=== PATIENT | male | born 1985 | race Caucasian/White ===

== ENCOUNTER → 2016-10-02 | Outpatient (REF) | payer BC, OTHER ==
[~2016-10-02] MED LIST: ALEV220C2 PO; LORTAB PO
[2016-10-05 00:08] LABS: ENDOMYSIAL ABY IgA Negative (Negative)
== END ==
LOC: M LAB REF 17:05
PROVIDERS: ATTEND Internal Medicine
DX: R19.7 Diarrhea, unspecified (principal)

== ENCOUNTER → 2016-11-17 | Outpatient (REF) | payer BC, OTHER | LOC: M LAB REF 11:49 | PROVIDERS: ATTEND Internal Medicine | DX: R19.7 Diarrhea, unspecified (principal) ==

== ENCOUNTER → 2017-02-13 | Outpatient (CLI) | payer OTHER ==
[2017-02-13 13:38] LABS: ALBUMIN 4.1 GM/DL (3.2-5.2); ALBUMIN/GLOBULIN RATIO 1.17 (1.00-1.93); ALKALINE PHOSPHATASE 55 U/L (45-117); ALT/SGPT 175 U/L (12-78); AST/SGOT 120 U/L (7-37); BILIRUBIN,DIRECT 0.2 MG/DL (0.0-0.2); BILIRUBIN,TOTAL 0.6 MG/DL (0.2-1.0); FERRITIN 788 NG/ML (26-388); PERCENT SATURATION 52.7 % (19.7-50.0); TOTAL IRON BINDING CAPACITY 220 UG/DL (250-450); TOTAL PROTEIN 7.6 GM/DL (6.4-8.2)
[2017-02-14 10:41] LABS: HEPATITIS B SURFACE ANTIBODY POSITIVE (POSITIVE)
[2017-02-17 13:58] LABS: ALBUMIN 4.64 GM/DL (3.29-5.55); GAMMA GLOBULIN % 13.4 % (11.1-18.8)
[2017-02-19 08:06] LABS: ALPHA 1 ANTITRYPSIN 162 mg/dL (90-200); TISSUE TRANSGLUTAMINASE IgG <2 U/mL (0-5)
== END ==
LOC: M LAB 11:42
PROVIDERS: ATTEND Internal Medicine Gastroenterology
DX: R94.5 Abnormal results of liver function studies (principal)

== ENCOUNTER → 2019-06-14 | Outpatient (REF) | payer BC | LOC: M LAB REF 16:55 | PROVIDERS: ATTEND Nurse Practitioner Family | DX: L20.89 Other atopic dermatitis (principal); L08.9 Local infection of the skin and subcutaneous tissue, unspecified ==

== ENCOUNTER → 2020-02-14 | Outpatient (REF) | payer BC ==
[2020-02-14 17:25] LABS: INFLUENZA A AMPLIFICATION NEGATIVE (NEGATIVE); INFLUENZA B AMPLIFICATION NEGATIVE (NEGATIVE)
== END ==
LOC: M LAB REF 16:19
PROVIDERS: ATTEND Physician Assistant Medical
DX: J11.1 Influenza due to unidentified influenza virus with other respiratory manifestations (principal)

== ENCOUNTER → 2020-03-14 | Outpatient (REF) | payer BC ==
[2020-03-16 19:06] LABS: LDL DIRECT 76 mg/dL (0-99)
== END ==
LOC: M LAB REF 16:00
PROVIDERS: ATTEND Physician Assistant Medical
DX: Z13.220 Encounter for screening for lipoid disorders (principal)

== ENCOUNTER → 2020-05-03 | Outpatient (CLI) | payer BC, OTHER | LOC: M LABSMTC 13:08 | PROVIDERS: ATTEND Anesthesiology | DX: Z01.812 Encounter for preprocedural laboratory examination (principal); Z20.822 Contact with and (suspected) exposure to COVID-19; Z11.59 Encounter for screening for other viral diseases ==

== ENCOUNTER 2020-05-08 11:04 | Day surgery (SDC) | payer OTHER ==
[~2020-05-08] VITALS: Ht 177.8 cm; Wt 74.4 kg
--- OUTSIDE RECORDS SUMMARY | 2020-05-08 11:09 | CCD ---
Continuity of Care Document (CCD) Created on: 03/20/2020 Jorge Bedolla JR External Reference #: [id number] : [id number] Sex: Male Author Author Jorge MCNAIR PA Organization Unknown Address [address] [facility] [address] [place] [address] Phone [phone] Care Team Providers Care Real Estate Portfolio Manager Name Role Phone ServageKaylee AUTM [phone] Dusitn Mcnair AUTM [phone] Problems Active Problems Provider Date Gastroesophageal reflux disease CHIARA Ward Onset: 1 Note: with mild esophagitis Social History Type Date Description Comments Sex Unknown ETOH Use 03/14/2020 consumes 3-4 beers per day CONSU MES 1-2 daily Tobacco Use Start: Unknown Patient is a current smoker, smo kes every day 1 PPD since the age of 18 Allergies, Adverse Reactions, Alerts Active Allergies Reaction Severity Comments Date Penicillin as a child 08/24/2013 Medications Active Medications SIG Qnty Indications Ordering Provide r Date Dupixent 300mg/2ML Soln Prefill Sy ringe inj every 3 weeks Jenny Grimaldo NP Unknown Immunizations Description No Information Available Vital Signs Date Vital Result Comment 03/14/2020 8:59am BP Systolic 114 mmHg BP Diastolic 94 mmHg Heart Rate 92 /min Height 71 inches 5'11" Weight 178.00 lb O2 % BldC Oximetry 97 % BMI (Body Mass Index) 24.8 kg/m2 09/15/2017 1:57pm BP Systolic 128 mmHg BP Diastolic 76 mmHg Heart Rate 86 /min Height 70.50 inches 5'10.50" Weight 170.12 lb BMI (Body Mass Index) 24.1 kg/m2 Results Test Acquired Date Facility Test Result H/L Range Note Complete Blood Count 03/14/2020 [facility] Macroeconomics Professor: [place] [address] [phone] WBC 6.0 x10*3/UL 4.1 - 10.9 RBC 4.21 x10*6/UL 4.20 - 6.30 Hemoglobin 13.7 g/dL 12.0 - 18.0 Hematocrit 39.9 % 37.0 - 51.0 MCV 94.8 fL 80.0 - 97.0 MCH 32.6 pg High 26.0 - 32.0 MCHC 34.3 g/dL 31.0 - 38.0 RDW 13.8 % High 11.6 - 13.7 PLT 332 x10*3/UL 140 - 440 MPV 8.9 FL 7.8 - 11.0 Lymph % 34.8 % 10.0 - 58.5 Mid % 7.3 % 1.7 - 9.3 Neut % 57.9 % 37.0 - 92.0 Lymph # 2.1 x10*3/UL 0.6 - 4.1 Mid # 0.4 x10*3/UL 0.1 - 0.6 Neut # 3.5 x10*3/UL 2.0 - 7.8 Comprehensive Chem Profile 03/14/2020 [facility] Macroeconomics Professor: [place] [address] [phone] Glucose 83 mg/dL 74 - 99 1 BUN 9 mg/dL 7 - 18 Creatinine 1.0 mg/dL 0.6 - 1.3 Sodium 138 mEq/L 136 - 145 Potassium 4.3 mEq/L 3.5 - 5.1 Chloride 99 mEq/L 98 - 107 Carbon Dioxide 28 mEq/L 21 - 32 Calcium 8.8 mg/dL 8.5 - 10.1 Alk. Phosphatase 80 mg/dL 46 - 116 Total Bilirubin 0.5 mg/dL 0.2 - 1.0 Ast (Sgot) 90 U/L High 15 - 37 Alt (SGPT) 53 U/L 12 - 78 Albumin 3.8 g/dL 3.4 - 5.0 Total Protein 7.2 g/dL 6.4 - 8.2 A/G Ratio 1.12 CALC 1.00 - 1.90 GFR >= 60 mL/min >60 GFR >= 60 mL/min >60 2 Lipid Profile 03/14/2020 [facility] Macroeconomics Professor: [place] [address] [phone] Cholesterol 203 mg/dL High 131 - 200 Triglycerides 428 mg/dL High 30 - 150 3 HDL Cholesterol 52 mg/dL 35 - 60 LDL (Calculated) Unable to calcul <SEE NOTE> CALC 50 - 159 4 LDL Direct 03/14/2020 [facility] nter [address] [place] [address] [phone] LDL Direct 76 mg/dL Normal 0-99 Comment LDL Direct TNP Normal . 5 1 100-125 mg/dL PRE-DIABET ES/FASTING >126 mg/dL DIABETES/FASTING 2 CHRONIC KIDNEY DISEASE STAGI NG PER NKF STAGE I & II GFR >= 60 NORMAL TO MILDLY DECREASED STAGE III GFR 30-59 MODERATELY DECREASED STAGE IV GFR 15-29 SEVERELY DECREASED STAGE V GFR <15 VERY LITTLE GFR LEFT ESRD GFR <15 ON TRENCHER DRIVER 3 NOTE: RESULT VERIFIED. 4 Unable to calculate 5 Performed at: RN - [facility] [address] [id number] Macroeconomics Professor: Kim Borrego MD, Phone: [phone] Procedures Description No Information Available Medical Devices Description No Information Available Encounters Description No Information Available Assessments Date Code Description Provider 03/14/2020 Z00.00 Encounter for genera l adult medical examination without abnormal findings OSCAR Negron JR 03/14/2020 F10.20 Alcohol dependence, uncomplicate d OSCAR Negron JR 03/14/2020 F17.210 Nicotine dependence, cigarettes, uncomplicated OSCAR Negron JR 03/14/2020 R19.7 Diarrhea, unspecified OSCAR Denson JR 03/14/2020 R10.84 Generalized abdominal pain Vincenzo OSCAR [place] JR 03/14/2020 R11.10 Vomiting, unspecified OSCAR Denson JR 03/14/2020 Z13.220 Encounter for screening for lipo id disorders OSCAR Negron JR 03/14/2020 Z71.6 Tobacco abuse counseling OSCAR Negron JR Plan of Treatment Future Appointment(s):* 09/19/2020 8:00 am - OSCAR Negron JR at [facility] 03/14/2020 - OSCAR Negron JR* Z00.00 Encounter for general adult medical examination without abnormal findings* Comments:* Labs are pending, routine screen not due, VELMA discussed as well as diet and exercise. We discussed heart healthy Mediterranean diet and avoiding fast and fried food with increased fruits and vegetables. Also discussed smoking cessation and reduced alcohol consumption. Exercise discussed at length and he will attempt to add this to his routine. will refer to GI for abdominal pains/N/V issues, may need scope and CT * F10.20 Alcohol dependence, uncomplicated* Comments:* Has cut back to 1-2 drinks a night usually beer. Will continue to try to keep cutting back * F17.210 Nicotine dependence, cigarettes, uncomplicated* Comments:* Still smoking 1 pack a day, trying to cut back more on his own * R19.7 Diarrhea, unspecified* Comments:* Along with N/V and abdominal pains intermittent * R10.84 Generalized abdominal pain* Comments:* Refer to GI for scope and consult * Referral:* Michael Coreas MD, Gastroenterology * R11.10 Vomiting, unspecified* Comments:* Refer to GI for scope and consult * Z13.220 Encounter for screening for lipoid disorders * Z71.6 Tobacco abuse counseling* Comments:* >5 minutes discussed on importance of cutting back Functional Status Description No Information Available Mental Status Description No Information Available Referrals Refer to Reason for Referral Status Appt Date Michael Coreas MD CONSULT FOR N/V/D AND ABDOMI NAL PAIN. POSSIBLE ENDOSCOPY Patient Notified 04/27/[address] [place], [place] [address] [phone]
--- OUTSIDE RECORDS SUMMARY | 2020-05-08 11:09 | CCD | Continuity of Care Document ---
Author Author Jorge COREAS M.D. Organization Unknown Address [address] [place] [address] Phone [phone] Care Team Providers Care Survey Associate Name Role Phone Dustin Mcnair Milagros C P.A. AUTM [phone] Problems Active Problems Provider Date Nausea and vomiting Michael Coreas M.D. Onset: 04/27/19 21 Social History Type Date Description Comments Sex Unknown ETOH Use Occasionally Tobacco Use Start: Unknown Patient is a current smoker, smo kes every day Recreational Drug Use Regularly uses Marijuana Allergies, Adverse Reactions, Alerts Active Allergies Reaction Severity Comments Date Penicillin V 04/27/2020 Medications Active Medications SIG Qnty Indications Ordering Provide r Date Sutab [id number] Tablets as directed 1box Michael Coreas M.D. 04/27/2020 History Medications No Active Medications Michael sosa M.D. 04/27/2020 - 04/27/2020 Immunizations Description No Information Available Vital Signs Date Vital Result Comment 04/27/2020 2:59pm Height 70 inches 5'10" Weight 173.00 lb BP Systolic 119 mmHg BP Diastolic 85 mmHg Heart Rate 93 /min BMI (Body Mass Index) 24.8 kg/m2 Weight 78.473 kg Body Temperature 97.9 F Results Description No Information Available Procedures Description No Information Available Medical Devices Description No Information Available Encounters Description No Information Available Assessments Date Code Description Provider 04/27/2020 K58.8 Irritable bowel syndrome Michael Croeas M.D. 04/27/2020 K21.9 Gastroesophageal reflux disease Michael Coreas M.D. Plan of Treatment Future Appointment(s):* 05/02/2020 6:30 am - [facility] at Main Office * 05/08/2020 1:00 pm - Michael Coreas M.D. at Main Office 04/27/2020 - Michael Coreas M.D.* K58.8 Irritable bowel syndrome* Comments: * 35 yo wm who presents for a colonoscopy/egd due to a h/o abdominal pain/gas/nausea/vomiting/ for 1 month. Pt has diarrhea. No c/o abdominal pain, weight loss, change in bowel habits, or rectal bleeding. No family h/o colon cancer. No h/o chest pain, or sob. Plan:1. Colonoscopy + egd2. Informed consent. * K21.9 Gastroesophageal reflux disease* Comments:* As above. Functional Status Description No Information Available Mental Status Description No Information Available Referrals Description No Information Available
--- OUTSIDE RECORDS SUMMARY | 2020-05-08 11:09 | CCD | Continuity of Care Document ---
Author Author Jorge MCNAIR PA Organization Unknown Address [address] [facility] [address] [place] [address] Phone [phone] Care Team Providers Care Quality Control Representative Name Role Phone ServageKaylee AUTM [phone] Dustin Mcnair AUTM [phone] Problems Active Problems Provider Date Gastroesophageal reflux [...] H/L Range Note Complete Blood Count 03/14/2020 [facility] Head Of Training And Development: [place] [address] [phone] WBC 6.0 x10*3/UL 4.1 - 10.9 RBC [...] 2.0 - 7.8 Comprehensive Chem Profile 03/14/2020 [facility] Head Of Training And Development: [place] [address] [phone] Glucose 83 mg/dL 74 - 99 1 [...] 60 mL/min >60 2 Lipid Profile 03/14/2020 [facility] Head Of Training And Development: [place] [address] [phone] Cholesterol 203 mg/dL High 131 - 200 Triglycerides 428 mg/dL High 30 - 150 3 HDL Cholesterol 52 mg/dL 35 - 60 LDL (Calculated) Unable to calcul <SEE NOTE> CALC 50 - 159 4 Laboratory test finding 03/14/2020 [facility] [address] [place] [address] [phone] LDL Direct <pending> 1 100-125 mg/dL PRE-DIABET ES/FASTING >126 mg/dL DIABETES/FASTING 2 CHRONIC KIDNEY DISEASE STAGI NG PER NKF STAGE I & II GFR >= 60 NORMAL TO MILDLY DECREASED STAGE III GFR 30-59 MODERATELY DECREASED STAGE IV GFR 15-29 SEVERELY DECREASED STAGE V GFR <15 VERY LITTLE GFR LEFT ESRD GFR <15 ON ECHOCARDIOGRAPHER 3 NOTE: RESULT VERIFIED. 4 Unable to calculate Procedures Description No Information Available Medical Devices [...] 8:00 am - OSCAR Negron JR at [facility] 09/15/2017 - Heriberto Feliciano MD* F10.20 Alcohol dependence, uncomplicated * F17.210 Nicotine dependence, cigarettes, uncomplicated* Comments:* Smoking cessation discussed. * Z71.6 Tobacco abuse counseling * All * New Medication:* No Active Medications - Functional Status Description No Information Available Mental Status Description No Information Available Referrals Refer to Reason for Referral Status Appt Date Michael Coreas MD CONSULT FOR N/V/D AND ABDOMI NAL PAIN. POSSIBLE ENDOSCOPY Created [address] [facility] [id number] [phone]
--- OUTSIDE RECORDS SUMMARY | 2020-05-08 11:09 | CCD | Continuity of Care Document ---
Author Author Jorge COREAS M.D. Organization Unknown Address [address] [place] [address] Phone [phone] Care Team Providers Care Box Office Clerk Name Role Phone Dustin Mcnair Milagros C P.A. AUTM [phone] Problems Active Problems Provider Date Nausea and [...] Qnty Indications Ordering Provide r Date Sutab [id number] Tablets as directed 1box Michael Coreas M.D. [...] Medical Devices Description No Information Available Encounters Type Date Location Provider Dx Diagnosis Office Visit 04/27/2020 2:30p Main Office Michael Coreas M.D. K 58.8 Other irritable bowel syndrome K21.9 Gastro-esophageal reflux dis ease without esophagitis Assessments Date Code Description Provider 04/27/2020 K58.8 Irritable bowel syndrome Michael Coreas M.D. 04/27/2020 K21.9 Gastroesophageal reflux disease Michael Coreas M.D. Plan of Treatment Future Appointment(s):* 05/02/2020 6:30 am - [place] at Main Office * 05/08/2020 1:00 pm [...]
--- OUTSIDE RECORDS SUMMARY | 2020-05-08 11:09 | CCD | Continuity of Care Document ---
Author Author Jorge MCNAIR PA Organization Unknown Address [address] [facility] [address] [place] [address] Phone [phone] Care Team Providers Care Firer Marine Name Role Phone ServageKaylee AUTM [phone] Dustin Mcnair AUTM [phone] Problems Active Problems Provider Date Gastroesophageal reflux [...] Range Note Complete Blood Count 03/14/2020 [facility] Clinical Rn Manager: [place] [address] [phone] WBC 6.0 x10*3/UL 4.1 - 10.9 RBC [...] 2.0 - 7.8 Comprehensive Chem Profile 03/14/2020 [facility] Clinical Rn Manager: [place] [address] [phone] Glucose 83 mg/dL 74 - 99 1 [...] 60 mL/min >60 2 Lipid Profile 03/14/2020 [facility] Clinical Rn Manager: [place] [address] [phone] Cholesterol 203 mg/dL High 131 - 200 Triglycerides 428 mg/dL High 30 - 150 3 HDL Cholesterol 52 mg/dL 35 - 60 LDL (Calculated) Unable to calcul <SEE NOTE> CALC 50 - 159 4 LDL Direct 03/14/2020 [facility] nter [address] [place] [address] [phone] LDL Direct 76 mg/dL Normal 0-99 Comment [...] LITTLE GFR LEFT ESRD GFR <15 ON FINE ARTS MODEL 3 NOTE: RESULT VERIFIED. 4 Unable to calculate 5 Performed at: RN - [facility] [address] [id number] Clinical Rn Manager: Kim Borrego MD, Phone: [phone] Procedures Description No Information Available Medical Devices Description No Information Available Encounters Type Date Location Provider Dx Diagnosis Office Visit 03/14/2020 9:00a [facility] OSCAR Hood JR Z00.00 Encntr for general adult med ical exam w/o abnormal findings R10.84 Generalized abdominal pain R19.7 Diarrhea, unspecified R11.10 Vomiting, unspecified F10.20 Alcohol dependence, uncompli cated F17.210 Nicotine dependence, cigaret ziggy, uncomplicated Z71.6 Tobacco abuse counseling Z13.220 Encounter for screening for lipoid disorders Z13.89 Encounter for screening for other disorder Assessments Date Code Description Provider 03/14/2020 Z00.00 Encounter for genera l adult medical examination without abnormal findings OSCAR Negron JR 03/14/2020 R10.84 Generalized abdominal pain OSCAR Santiago JR 03/14/2020 R19.7 Diarrhea, unspecified OSCAR Denson JR 03/14/2020 R11.10 Vomiting, unspecified OSCAR Denson JR 03/14/2020 F10.20 Alcohol dependence, uncomplicate d OSCAR Negron JR 03/14/2020 F17.210 Nicotine dependence, cigarettes, uncomplicated OSCAR Negron JR 03/14/2020 Z71.6 Tobacco abuse counseling OSCAR Negron JR 03/14/2020 Z13.220 Encounter for screening for lipo id disorders OSCAR Negron JR 03/14/2020 Z13.89 Encounter for screening for othe r disorder OSACR Negron JR Plan of Treatment Future Appointment(s):* 09/19/2020 8:00 am - OSCAR Negron JR at [facility] 03/14/2020 - OSCAR Negron JR* [...] issues, may need scope and CT * R10.84 Generalized abdominal pain* Comments:* Refer to GI for scope and consult * Referral:* Michael Coreas MD, Gastroenterology * R19.7 Diarrhea, unspecified* Comments:* Along with N/V and abdominal pains intermittent * R11.10 Vomiting, unspecified* Comments:* Refer to GI for scope and consult * F10.20 Alcohol dependence, uncomplicated* Comments:* Has cut back to 1-2 drinks a night usually beer. Will continue to try to keep cutting back * F17.210 Nicotine dependence, cigarettes, uncomplicated* Comments:* Still smoking 1 pack a day, trying to cut back more on his own * Z71.6 Tobacco abuse counseling* Comments:* >5 minutes discussed on importance of cutting back * Z13.220 Encounter for screening for lipoid disorders * Z13.89 Encounter for screening for other disorder Functional Status Description No Information Available Mental Status Description No Information Available Referrals Refer to Reason for Referral Status Appt Date Michael Coreas MD CONSULT FOR N/V/D AND ABDOMI NAL PAIN. POSSIBLE ENDOSCOPY Patient Notified 04/27/[address] [facility] [address] [phone]
--- OUTSIDE RECORDS SUMMARY | 2020-05-08 11:09 | CCD ---
Author Author [facility] Organization [facility] Address Unknown Phone Unavailable Care Team Providers Care Install And Repair Technician Name Role Phone Justo Coreas MD Unavailable Unavailable Justo Coreas MD Unavailable Unavailable Justo Coreas MD Unavailable Unavailable Justo Coreas MD Unavailable Unavailable Justo Coreas MD Unavailable Unavailable Justo Coreas MD Unavailable Unavailable Justo Coreas MD Unavailable Unavailable Justo Coreas MD Unavailable Unavailable Justo Coreas MD Unavailable Unavailable Justo Coreas MD Unavailable Unavailable Justo Coreas MD Unavailable Unavailable Justo Coreas MD Unavailable Unavailable Justo Coreas MD Unavailable Unavailable Justo Coreas MD Unavailable Unavailable Justo Coreas MD Unavailable Unavailable Justo Coreas MD Unavailable Unavailable Justo Coreas MD Unavailable Unavailable Justo Coreas MD Unavailable Unavailable Justo Coreas MD Unavailable Unavailable Justo Coreas MD Unavailable Unavailable Justo Coreas MD Unavailable Unavailable Justo Coreas MD Unavailable Unavailable Justo Coreas MD Unavailable Unavailable Justo Coreas MD Unavailable Unavailable Justo Coreas MD Unavailable Unavailable Justo Coreas MD Unavailable Unavailable Justo Coreas MD Unavailable Unavailable Justo Coreas MD Unavailable Unavailable Lyudmila, S Michael MD Unavailable Unavailable Lyudmila, S Michael MD Unavailable Unavailable Lyudmila, S Michael MD Unavailable Unavailable Lyudmila, S Michael MD Unavailable Unavailable Lyudmila, S Michael MD Unavailable Unavailable Lyudmila, S Michael MD Unavailable Unavailable Lyudmila, S Michael MD Unavailable Unavailable Lyudmila, S Michael MD Unavailable Unavailable Lyudmila, S Michael MD Unavailable Unavailable Lyudmila, S Michael MD Unavailable Unavailable Lyudmila, S Michael MD Unavailable Unavailable Lyudmila, S Michael MD Unavailable Unavailable Lyudmila, S Michael MD Unavailable Unavailable Lyudmila, S Michael MD Unavailable Unavailable Lyudmila, S Michael MD Unavailable Unavailable Lyudmila, S Michael MD Unavailable Unavailable Lyudmila, S Michael MD Unavailable Unavailable Lyudmila, S Michael MD Unavailable Unavailable Lyudmila, S Michael MD Unavailable Unavailable Lyudmila, S Michael MD Unavailable Unavailable Lyudmila, S Michael MD Unavailable Unavailable Lyudmila, S Michael MD Unavailable Unavailable PICKERAL JR, J JAYMIE PA-C Unavailable Unavailable PICKERAL JR, J JAYMIE PA-C Unavailable Unavailable PICKERAL JR, J JAYMIE PA-C Unavailable Unavailable PICKERAL JR, J JAYMIE PA-C Unavailable Unavailable PICKERAL JR, J JAYMIE PA-C Unavailable Unavailable PICKERAL JR, J JAYMIE PA-C Unavailable Unavailable PICKERAL JR, J JAYMIE PA-C Unavailable Unavailable PICKERAL JR, J JAYMIE PA-C Unavailable Unavailable PICKERAL JR, J JAYMIE PA-C Unavailable Unavailable PICKERAL JR, J JAYMIE PA-C Unavailable Unavailable PICKERAL JR, J JAYMIE PA-C Unavailable Unavailable PICKERAL JR, J JAYMIE PA-C Unavailable Unavailable PICKERAL JR, J JAYMIE PA-C Unavailable Unavailable PICKERAL JR, J JAYMIE PA-C Unavailable Unavailable PICKERAL JR, J JAYMIE PA-C Unavailable Unavailable PICKERAL JR, J JAYMIE PA-C Unavailable Unavailable PICKERAL JR, J JAYMIE PA-C Unavailable Unavailable PICKERAL JR, J JAYMIE PA-C Unavailable Unavailable PICKERAL JR, J JAYMIE PA-C Unavailable Unavailable PICKERAL JR, J JAYMIE PA-C Unavailable Unavailable PICKERAL JR, J JAYMIE PA-C Unavailable Unavailable Re-disclosure Warning The records that you are about to access may contain information from federally-assisted alcohol or drug abuse programs. If such information is present, then the following federally mandated warning applies: This information has been disclosed to you from records protected by federal confidentiality rules (42 CFR part 2). The federal rules prohibit you from making any further disclosure of this information unless further disclosure is expressly permitted by the written consent of the person to whom it pertains or as otherwise permitted by 42 CFR part 2. A general authorization for the release of medical or other information is NOT sufficient for this purpose. The Federal rules restrict any use of the information to criminally investigate or prosecute any alcohol or drug abuse patient.The records that you are about to access may contain highly sensitive health information, the redisclosure of which is protected by Article 27-F of the [facility] Public Health law. If you continue you may have access to information: Regarding HIV / AIDS; Provided by facilities licensed or operated by the [facility] Office of Mental Health; or Provided by the [facility] Office for People With Developmental Disabilities. If such information is present, then the following [facility] mandated warning applies: This information has been disclosed to you from confidential records which are protected by state law. State law prohibits you from making any further disclosure of this information without the specific written consent of the person to whom it pertains, or as otherwise permitted by law. Any unauthorized further disclosure in violation of state law may result in a fine or care home sentence or both. A general authorization for the release of medical or other information is NOT sufficient authorization for further disc losure. Encounters Encounter Providers Location Date Indications Data Source(s ) Outpatient Attender: Michael Coreas MD Main Office 04/27/2020 01:30:00 PM EST [facility] ([facility]) Outpatient Attender: JAYMIE Reynoldslogg Rito 1 05/15/2019 08:00:00 AM EST [facility] ([facility] ) Medications Medication Brand Name Start Date Product Form Dose Route Admi nistrative Instructions Pharmacy Instructions Status Indications Reaction Description Data Source(s) 1.479-0.188 gram 05/04/2020 12:00:00 AM EST tablet 24 USE DIRECTED USE DIRECTED SOLD: 05/04/2020 [facility] Sutab Sutab 04/27/2020 12:00:00 AM EST active [facility] ([facility]) No Active Medications 04/27/2020 12:00:00 AM EST completed [facility] ([facility]) Insurance Providers Payer name Policy type / Coverage type Policy ID Covered republican ID Covered republican's relationship to jones Policy Jones Plan Information [facility] [id number] SP [id number] BCBS [place] HMO [id number] SP [id number] [place] PPO 302/307 [id number] SP [id number] [employer] HE[employer] CARE [id number] SP [id number] MVP (HMO/PPO) HEALTH CARE [id number] 0 [id number] BS [place] Trad/MX Commercial [id number] Self [id number] MVP Healthcare Commercial [id number] Self [id number] [employer] HE[employer] CARE [id number] SP [id number] MVP HEALTH CARE O [id number] S [id number] BCBS [place] PPO 302/307 [id number] SP [id number] EXCELLUS BCBS B [id number] S [id number] EXCELLUS BCBS P [id number] S [id number] P UNAVAILABLE UNAVAILA BLE SELF PAY UNAVAILABLE SP UNAVAILA BLE BCBS [place] PPO 302/307 [id number] [id number] Problems, Conditions, and Diagnoses Code Display Name Description Problem Type Effective Dates Data Source(s) [id number] Nausea and vomiting Nausea and vomiting Problem 0 04/27/2020 12:00:00 AM EST [facility] ([facility]) Results ID Date Data Source [id number] 05/03/2020 01:20:00 PM EST [facility] Name Value Range Interpretation Code Description Data Yamile rce(s) Supporting Document(s) SARS coronavirus 2 RNA Not Detected [facility] This lab was ordered by [facility] and reported by [facility]. ID Date Data Source [id number] 04/08/2020 12:00:00 AM EST [facility] Name Value Range Interpretation Code Description Data Yamile rce(s) Supporting Document(s) SARS-CoV2 Rapid Antigen Positive [facility] This lab was ordered by [facility] and reported by [facility]. ID Date Data Source [id number] 03/14/2020 09:23:00 AM EST [facility] ([facility]) Name Value Range Interpretation Code Description Data Yamile rce(s) Supporting Document(s) Comment LDL Direct Laboratory test result [facility] ([facility]) Performed at: RN - [facility] [address] [id number] Caramel Candy Maker: Kim Borrego MD, Phone: [phone] LDL Direct 76 mg/dL 0-99 [facility] ([facility]) ID Date Data Source [id number] 03/14/2020 09:23:00 AM EST [facility] ([facility]) Name Value Range Interpretation Code Description Data Yamile rce(s) Supporting Document(s) Cholesterol [Mass/volume] in Serum or Plasma 203 mg/dL 131-200 [facility] ([facility]) Triglyceride [Mass/volume] in Serum or Plasma 428 mg/dL 30-150 [facility] ([facility]) NOTE: RESULT VERIFIED. Cholesterol in HDL [Mass/volume] in Serum or Plasma 52 mg/dL 35-60 [facility] ([facility]) Cholesterol in LDL [Mass/volume] in Serum or Plasma by calculation Laboratory test result 50-159 [facility] ([facility] ) Unable to calculate ID Date Data Source [id number] 03/14/2020 09:23:00 AM EST [facility] ([facility]) Name Value Range Interpretation Code Description Data Yamile rce(s) Supporting Document(s) Glucose [Mass/volume] in Serum or Plasma 83 mg/dL 74-99 [facility] ([facility]) 100-125 mg/dL PRE-DIABETES/FASTING >126 mg/dL DIABETES/FASTING Creatinine 1.0 mg/dL 0.6-1.3 [facility] ([facility]) Urea nitrogen [Mass/volume] in Serum or Plasma 9 mg/dL 7-18 [facility] ([facility]) Potassium [Moles/volume] in Serum or Plasma 4.3 meq/L 3.5-5.1 [facility] ([facility]) Carbon dioxide, total [Moles/volume] in Serum or Plasma 28 meq/L 21 -32 [facility] ([facility]) Sodium [Moles/volume] in Serum or Plasma 138 meq/L 136-145 [facility]) Chloride [Moles/volume] in Serum or Plasma 99 meq/L 98-107 [facility] ([facility]) Calcium [Mass/volume] in Serum or Plasma 8.8 mg/dL 8.5-10.1 [facility] ([facility]) Total Bilirubin 0.5 mg/dL 0.2-1.0 [facility] ([facility]) Alkaline phosphatase isoenzyme [Units/volume] in Serum or Pl asma 80 mg/dL 46-116 [facility] ([facility]) Aspartate aminotransferase [Enzymatic activity/volume] in Serum or Plasma 90 U/L 15-37 [facility] ([facility] ) Alanine aminotransferase [Enzymatic activity/volume] in Seru m or Plasma 53 U/L 12-78 [facility] ([facility]) Albumin [Mass/volume] in Serum or Plasma 3.8 g/dL 3.4-5.0 [facility] ([facility]) Glomerular filtration rate/1.73 sq M pre dicted among non-blacks [Volume Rate/Area] in Serum or Plasma by Creatinine-based formula (MDRD) Laboratory test result [facility] ([facility] ) A/G Ratio 1.12 CALC 1.00-1.90 [facility]) Proteinase 3 Ab [Units/volume] in Serum 7.2 g/dL 6.4-8.2 [facility] ([facility]) Glomerular filtration rate/1.73 sq M pre dicted among blacks [Volume Rate/Area] in Serum or Plasma by Creatinine-based formula (MDRD) Laboratory test result [facility] <content>CHRONIC KIDNEY DISEASE STAGING PER NKF</content>
<content></content>
<content>STAGE I & II GFR >= 60 NORMAL TO MILDLY DECREASED</content>
<content>STAGE III GFR 30-59 MODERATELY DECREASED</content>
<content>STAGE IV GFR 15-29 SEVERELY DECREASED</content>
<content>STAGE V GFR <15 VERY LITTLE GFR LEFT</content>
<content>ESRD GFR <15 ON VIDEO SOFTWARE ENGINEER</content>
<content></content> ID Date Data Source [id number] 03/14/2020 09:23:00 AM EST [facility] ([facility]) Name Value Range Interpretation Code Description Data Yamile rce(s) Supporting Document(s) Erythrocytes [#/volume] in Blood by Automated count 4.21 x10*6/UL 4.2 0-6.30 [facility] ([facility]) Leukocytes [#/volume] in Blood by Automated count 6.0 x10*3/UL 4.1-10 .9 [facility] ([facility]) Hemoglobin [Mass/volume] in Blood 13.7 g/dL 12.0-18.0 [facility] ([facility]) MCH 32.6 pg 26.0-32.0 [facility] Hematocrit [Volume Fraction] of Blood by Automated count 39.9 % 3 7.0-51.0 [facility] ([facility]) MCV 94.8 fL 80.0-97.0 [facility]) Erythrocyte distribution width [Ratio] by Automated count 13.8 % 11.6-13.7 [facility] ([facility]) Platelets [#/volume] in Blood by Automated count 332 x10*3/UL 140-440 [facility] ([facility]) MCHC 34.3 g/dL 31.0-38.0 [facility] Lymph % 34.8 % 10.0-58.5 [facility]) MPV 8.9 FL 7.8-11.0 [facility] Mid % 7.3 % 1.7-9.3 [facility]) Lymph # 2.1 x10*3/UL 0.6-4.1 [facility] ([facility]) Neut % 57.9 % 37.0-92.0 [facility] Mid # 0.4 x10*3/UL 0.1-0.6 [facility] ([facility]) Neut # 3.5 x10*3/UL 2.0-7.8 [facility] ([facility]) ID Date Data Source [id number] 03/14/2020 09:23:00 AM EST [facility] ([facility]) Name Value Range Interpretation Code Description Data Yamile rce(s) Supporting Document(s) Cholesterol in LDL [Mass/volume] in Serum or Plasma by Direct assay Laboratory test result [facility] ([facility] ) ID Date Data Source [id number] 02/14/2020 02:00:00 PM EST [facility] Name Value Range Interpretation Code Description Data Yamile rce(s) Supporting Document(s) SARS coronavirus 2 RNA [Presence] in Res piratory specimen by MIGEL with probe detection [facility] This lab was ordered by [facility] a nd reported by [facility]. Procedure Social History Code Duration Value Status Description Data Source(s ) ETOH Use 03/14/2020 12:00:00 AM EST consumes 3-4 beers per day completed consumes 3-4 beers per day [facility] ([facility]) Vital Signs ID Date Data Source UNK Name Value Range Interpretation Code Description Data Source(s) Body temperature 97.9 [degF] 97.9 [degF] [facility] ([facility]) Body weight 78.473 kg 78.473 kg [facility] ([facility]) Body mass index (BMI) [Ratio] 24.8 kg/m2 24.8 k g/m2 [facility] ([facility]) Heart rate 93 /min 93 /min [facility] ([facility]) Diastolic blood pressure 85 mm[Hg] 85 mm[Hg] [facility] ([facility]) Systolic blood pressure 119 mm[Hg] 119 mm[Hg] [facility] ([facility]) Body weight 173.00 [lb_av] 173.00 [lb_av] [facility] ([facility]) Body height 70 [in_i] 70 [in_i] [facility] ([facility]) 5'10" Body mass index (BMI) [Ratio] 24.8 kg/m2 24.8 k g/m2 [facility] ([facility]) Oxygen saturation in Arterial blood by Pulse oximetry 97 % 97 % [facility] ([facility]) Body weight 178.00 [lb_av] 178.00 [lb_av] [facility] ([facility]) Body height 71 [in_i] 71 [in_i] [facility] ([facility]) 5'11" Heart rate 92 /min 92 /min [facility] ([facility]) Diastolic blood pressure 94 mm[Hg] 94 mm[Hg] [facility] ([facility]) Systolic blood pressure 114 mm[Hg] 114 mm[Hg] [facility] ([facility])
--- OUTSIDE RECORDS SUMMARY | 2020-05-08 11:09 | CCD | Continuity of Care Document ---
Author Author Jorge MUÑOZ PA Organization Unknown Address [address] [facility] [address] [place] [address] Phone [phone] Care Team Providers Care Maternity Nurse Name Role Phone YazageKaylee Raul ANP AUTM [phone] [place] CAREER BASED INTERVENTION COORDINATOR AUTM [phone] Problems Active Problems Provider Date Gastroesophageal reflux [...] BMI (Body Mass Index) 24.1 kg/m2 Results Description No Information Available Procedures Description [...] R19.7 Diarrhea, unspecified OSCAR Denson JR 03/14/2020 Z13.220 Encounter for screening for lipo id disorders OSCAR eNgron JR 03/14/2020 Z71.6 Tobacco abuse counseling OSCAR Negron JR Plan of Treatment No Information Available Functional Status Description No Information Available Mental Status Description No Information Available Referrals Description No Information Available
[2020-05-08] MEDS ORDERED: propofoL 500 MG/50 ML VIAL As Ordered ONE (11:39)
[2020-05-08] MEDS ORDERED: fentaNYL 100 MCG/2 ML INJECTION (J3010) As Ordered ONE (11:40)
[2020-05-08] MEDS ORDERED: LIDOCAINE 2% 100MG/5ML SDV (FOR ANES.) As Ordered ONE (11:59)
[2020-05-08] MEDS ORDERED: NS 1,000 ML IV ONE (12:00)
--- NOTE | 2020-05-08 12:19 | ROOR ---
Patient Name: Jorge Bedolla Procedure Date: 05/08/2020 12:06 PM Date of : 1985 Age: 35 [facility] Gender: Male Note Status: Finalized Procedure: Upper Endoscopy + Biopsies Indications: Epigastric abdominal pain, Heartburn, Nausea with vomiting Providers: Michael Coreas MD Referring MD: Mercy Roberts Requesting Provider: Medicines: Monitored Anesthesia Care Complications: No immediate complications. Procedure: Pre-Anesthesia Assessment: - The heart rate, respiratory rate, oxygen saturations, blood pressure, adequacy of pulmonary ventilation, and response to care were monitored throughout the procedure. The Endoscope was introduced through the mouth, and advanced to the second part of duodenum. The upper GI endoscopy was accomplished without difficulty. The patient tolerated the procedure well. Findings: The Z-line was regular and was found 40 cm from the incisors. Multiple biopsies were obtained with cold forceps for evaluation to rule out Barksdale's Esophagus randomly at the gastroesophageal junction. No other significant abnormalities were identified in a careful examination of the stomach. Biopsies were taken with a cold forceps in the gastric antrum for Helicobacter pylori testing. The exam of the duodenum was otherwise normal. Impression: - Z-line regular, 40 cm from the incisors. - Multiple biopsies were obtained at the gastroesophageal junction. - Biopsies were taken with a cold forceps for Helicobacter pylori testing. - The examination was otherwise normal. Recommendation: - Patient has a contact number available for emergencies. The signs and symptoms of potential delayed complications were discussed with the patient. Return to normal activities tomorrow. Written discharge instructions were provided to the patient. - High fiber diet. - Discharge patient to home. - Continue present medications. - Await pathology results. - Telephone GI clinic for pathology results in 1 week. - Return to referring physician. - The findings and recommendations were discussed with the patient. Procedure Code(s): --- Professional --- 31014, Esophagogastroduodenoscopy, flexible, transoral; with biopsy, single or multiple Diagnosis Code(s): --- Professional --- R10.13, Epigastric pain R12, Heartburn R11.2, Nausea with vomiting, unspecified CPT copyright 2019 [employer]. All rights reserved. The codes documented in this report are preliminary and upon health information coder review may be revised to meet current compliance requirements. Michael Coreas MD Michael Coreas MD 05/08/2020 12:18:42 PM Electronically signed by Michael Coreas MD Number of Addenda: 0 Note Initiated On: 05/08/2020 12:06 PM Estimated Blood Loss: Estimated blood loss: none.
--- NOTE | 2020-05-08 12:31 | ROOR ---
Patient Name: Jorge Bedolla Procedure Date: 05/08/2020 12:07 PM Date of : 1985 Age: 35 Room: [facility] Gender: Male Note Status: Finalized Procedure: Total Colonoscopy to Cecum Indications: Lower abdominal pain, Change in bowel habits Providers: Michael Coreas MD Referring MD: Mercy Roberts Requesting Provider: Medicines: Monitored Anesthesia Care Complications: No immediate complications. Procedure: Pre-Anesthesia Assessment: - The heart rate, respiratory rate, oxygen saturations, blood pressure, adequacy of pulmonary ventilation, and response to care were monitored throughout the procedure. The Colonoscope was introduced through the anus and advanced to the cecum, identified by appendiceal orifice and ileocecal valve. The colonoscopy was performed without difficulty. The patient tolerated the procedure well. The quality of the bowel preparation was good. Findings: The perianal and digital rectal examinations were normal. No other significant abnormalities were identified in a careful examination of the remainder of the colon. The exam was otherwise without abnormality on direct and retroflexion views. Impression: - The examination was otherwise normal on direct and retroflexion views. - No specimens collected. - The exam was otherwise normal to the cecum. Recommendation: - Patient has a contact number available for emergencies. The signs and symptoms of potential delayed complications were discussed with the patient. Return to normal activities tomorrow. Written discharge instructions were provided to the patient. - High fiber diet. - Discharge patient to home. - Continue present medications. - Repeat colonoscopy at age 52 for screening purposes. - Return to referring physician. - The findings and recommendations were discussed with the patient. Procedure Code(s): --- Professional --- 90890, Colonoscopy, flexible; diagnostic, including collection of specimen(s) by brushing or washing, when performed (separate procedure) Diagnosis Code(s): --- Professional --- R10.30, Lower abdominal pain, unspecified R19.4, Change in bowel habit CPT copyright 2019 [employer]. All rights reserved. The codes documented in this report are preliminary and upon waxer tender review may be revised to meet current compliance requirements. Michael Coreas MD Michael Coreas MD 05/08/2020 12:30:59 PM Electronically signed by Michael Coreas MD Number of Addenda: 0 Note Initiated On: 05/08/2020 12:07 PM Estimated Blood Loss: Estimated blood loss: none.
[2020-05-08 12:55] VITALS: BP 133/95
== END 2020-05-08 13:01 | disposition home or self-care (01) ==
LOC: M OPP 11:04
PROVIDERS: ATTEND Internal Medicine Gastroenterology
DX: R10.30 Lower abdominal pain, unspecified (principal); R19.4 Change in bowel habit; R10.13 Epigastric pain; R11.2 Nausea with vomiting, unspecified; D13.1 Benign neoplasm of stomach; K58.9 Irritable bowel syndrome, unspecified; K21.9 Gastro-esophageal reflux disease without esophagitis; F17.200 Nicotine dependence, unspecified, uncomplicated; Z88.0 Allergy status to penicillin
CPT/HCPCS: 43239; 45378; 88305; J3010

== ENCOUNTER 2020-09-19 17:18 | Inpatient (IN) | payer MEDICAID, OTHER ==
[~2020-09-19] VITALS: Ht 180.3 cm; Wt 84.1 kg
[2020-09-19] MEDS ORDERED: OMEP-221 PO (17:27)
[2020-09-19] MEDS ORDERED: ALPR0.5T3 PO (17:27)
[2020-09-19] MEDS ORDERED: BUPR150T12 PO (17:27)
[2020-09-19] MEDS ORDERED: LORazepam 2 MG TAB PO STA (17:39)
[2020-09-19 17:56] LABS: HEMATOCRIT 38.6 % (42.0-52.0); MEAN CORPUSCULAR HEMOGLOBIN 33.7 pg (27.0-33.0); MEAN CORPUSCULAR HGB CONC 33.7 g/dl (32.0-36.5); PLATELET COUNT, AUTOMATED 188 10^3/uL (150-450); RED BLOOD COUNT 3.86 10^6/uL (4.30-6.10); WHITE BLOOD COUNT 6.6 10^3/uL (4.0-10.0)
[2020-09-19 18:13] LABS: AMPHETAMINES LEVEL URINE NEGATIVE (NEGATIVE); BARBITURATES URINE NEGATIVE (NEGATIVE); BENZODIAZEPINES URINE NEGATIVE (NEGATIVE); CANNABINOIDS URINE POSITIVE (NEGATIVE); COCAINE METABOLITE URINE NEGATIVE (NEGATIVE); METHADONE URINE NEGATIVE (NEGATIVE); OPIATES URINE NEGATIVE (NEGATIVE); PHENCYCLIDINE URINE NEGATIVE (NEGATIVE)
[2020-09-19 18:28] LABS: ACETAMINOPHEN LEVEL < 2.0 UG/ML (10.0-30.0); ALBUMIN 3.7 GM/DL (3.2-5.2); ALT/SGPT 83 U/L (12-78); BILIRUBIN,DIRECT 0.1 MG/DL (0.0-0.2); BILIRUBIN,TOTAL 0.3 MG/DL (0.2-1.0); BLOOD UREA NITROGEN 5 MG/DL (7-18); CALCIUM LEVEL 8.8 MG/DL (8.5-10.1); CARBON DIOXIDE LEVEL 29 MEQ/L (21-32); CHLORIDE LEVEL 103 MEQ/L (98-107); CREATININE FOR GFR 0.88 MG/DL (0.70-1.30); ETHYL ALCOHOL (ETHANOL) 0.392 % (0.000-0.010); GLOMERULAR FILTRATION RATE > 60.0 (>60); GLUCOSE, FASTING 88 MG/DL (70-100); SALICYLATE LEVEL < 1.7 MG/DL (5.0-30.0); SODIUM LEVEL 138 MEQ/L (136-145); THYROID STIMULATING HORMONE 0.571 uIU/ML (0.358-3.740); TOTAL PROTEIN 7.5 GM/DL (6.4-8.2)
[2020-09-19] MEDS ORDERED: LORazepam 2 MG/ML VIAL IM ONE (20:10)
[2020-09-19] MEDS ORDERED: diphenhydrAMINE 50MG/ML VIAL (J1200) IM ONE (20:10)
[2020-09-19] MEDS ORDERED: HALOPERIDOL 5MG/ML VIAL (J1630 PER 1) IM ONE (20:10)
[2020-09-20] MEDS ORDERED: LORazepam 2 MG TAB PO PRN ×2 (04:55→14:25)
[2020-09-20] MEDS ORDERED: FOLIC ACID 1 MG TAB PO SCH (09:00)
[2020-09-20] MEDS ORDERED: THIAMINE 100 MG TAB PO SCH (09:00)
[2020-09-20] MEDS ORDERED: MULTIVITAMINS/MINERALS THERAP 1 TAB PO SCH (09:00)
[2020-09-20 14:23] LABS: RSV AMPLIFICATION NEGATIVE (NEGATIVE)
[2020-09-20] MEDS ORDERED: ACETAMINOPHEN TAB 650MG DOSE (2X325MG) PO PRN (14:25)
[2020-09-20] MEDS ORDERED: OLANZapine ORAL DISINTEGRATING TAB 5MG PO PRN (14:25)
[2020-09-20] MEDS ORDERED: MOM 30ML SUSPENSION UDC PO PRN (14:25)
[2020-09-20] MEDS ORDERED: MAALOX 30 ML SUSP *UDC PO PRN (14:25)
[2020-09-20] MEDS ORDERED: ALPRAZolam 0.5 MG TAB PO PRN (15:00)
[2020-09-20 15:53] VITALS: BP 164/103
[2020-09-20] MEDS: THIAMINE 100 MG TAB PO SCH (16:47)
[2020-09-20] MEDS ORDERED: NICOTINE 21MG/24HR 1 EA TRANSDERMAL TD ONE (17:45)
[2020-09-20] MEDS: OMEPRAZOLE 20 MG CAP PO SCH (21:03)
[2020-09-20] MEDS: traZODone 50 MG TAB PO PRN (21:04)
[2020-09-20] MEDS: buPROPion **XL** TABLET 150MG (WELLBUTRIN XL) PO SCH (21:04)
[2020-09-21 06:18] VITALS: BP 160/101
[2020-09-21 08:00] VITALS: BP 123/100
[2020-09-21] MEDS: FOLIC ACID 1 MG TAB PO SCH (09:06)
[2020-09-21] MEDS: MULTIVITAMINS/MINERALS THERAP 1 TAB PO SCH (09:06)
[2020-09-21] MEDS: THIAMINE 100 MG TAB PO SCH ×2 (09:06→20:23)
[2020-09-21] MEDS: NICOTINE 21MG/24HR 1 EA TRANSDERMAL TD SCH (09:07)
--- NOTE | 2020-09-21 11:11 | MHHPEPDOC ---
General Date Of Admission: Sep 20, 2020 Legal Status: 9.39 Chief Complaint ". I think I lost my temper been drinking quite heavily for the past few weeks. History of Present Illness HISTORY OF THE PRESENT ILLNESS: Patient is a 35 -year-old , male, who [has a long history of polysubstance abuse amphetamine and opiate in the past but recently heavy drinking. Patient has no previous psychiatric treatment but has been receiving antidepressant medicine from his primary care physician. He admits that he has been depressed at times but also gets very irritable and angry especially with his drinking. He was given Lexapro initially but did not get much help and was started on Wellbutrin in the past few weeks but he has not been consistently taking it. Patient was brought to emergency room per mental health warrant] initiated by his primary care doctor after his family reported that he was getting very paranoid acting strange and was making threats to his father and his girlfriend. Patient's father has been concerned about his mood and his drinking and recently removed several guns from his place and when he found out about this he became very angry agitated and made the threats verbally to his girlfriend and his father. At the emergency room he was found to have high level of alcohol but no other drugs in his tox screen. Patient was started on Ativan with [facility] and he slept and reports he is feeling a little bit better. He is denying any hallucinations denies any paranoia denies any history of jade and has no history of psychosis. He has been drinking heavily up to a case of beer a day for the past several weeks he denies having any history of severe wi thdrawal such as D.T. he understands that he has problem with his drinking and his temperament and irritability and is willing to cooperate with the treatment but denies any recent use of any opiate or amphetamine. Psychiatric Review of Systems Depression (2 or more weeks): depressed mood, anhedonia, psychomotor changes, other (Reports serious irritability and temper management) Jade (4 or more days of): irritable/elevated mood Psychosis: denies PTSD: denies Anxiety: situational anxiety Past Psychiatric History Previous Psychiatric Diagnosis: . Depression was receiving antidepressant from his primary care physician Previous Psychiatric Admissions: . No inpatient treatment Suicide Attempts: . No history of suicidal attempt no history of a homicidal or assaultive behavior Psychiatric Follow-up: . Not in any outpatient treatment Psychiatric medications: . Was on Lexapro and Wellbutrin Past Medical History Medical Problems Denies any major medical issues Head Injury: No Seizures: No Hospitalizations: No Surgeries: No Family Medical/Psychiatric HX Medical Problems Noncontributory Psychiatric Disorders: No (Her parents are alive and they do not have any mental health issues and no addictions issues 1 sister with a no psychiatric history) Addiction: No Suicide Attemps/Completions: No Addiction History alcohol, amphetamines, opioids Social History Childhood: . Born in [place] unremarkable childhood Abuse/Trauma:. Denies any abuse issues Current Living Situation: . Lives with his girlfriend of 6 years and has 3 children Education: . High school education Employment: . Worked in construction currently unemployed Social Support: . Parent and his girlfriend Legal: . DWI in teenage years no history of assault no felony conviction no current legal issues Marital: . Lives with his girlfriend of 6 years Mental Status Examination General Appearance: appears stated age, hospital scubs/clothing Build: average Demeanor: average, guarded Eye Contact: average Activity: average, anxious Behavior: cooperative Speech: clear, slow, low in volume Mood: depressed, anxious Mood Moderately depressed and anxious but he denies any history of severe depression with any major clinical or depressive symptoms and has no history of the manic Thought Process: logical/linear Thought Content (Delusions): none reported, denies SI, HI, AVH Thought Content (Other): none reported Thought Content (Aggressive): none reported Perception (Hallucinations): none reported Perception (Other): none reported Cognition (Impairment of): none reported Cognition(Intelligence Est.): average Oriented: Awake, Alert, Oriented times three Insight: fair Judgment: Fair Psychosis: Denies Diagnoses Depressive disorder NOS alcohol dependence history of other substances abuse in remission A-FIB/CHADSVASC A-FIB History Current/History of A-Fib/PAF?: No Current PO Anticoag Therapy: No Age/Risk Factor Scoring CHADSVASC: CHADSVASC Response (Comments) Value Gender Risk Factor Male 0 Hx of CHF No 0 Hx of HTN No 0 Hx of Stroke/TIA/or VTE No 0 Hx of Diabetes No 0 Hx of Vascular Disease No 0 Total 0 Treatment Treatment ordered: NONE Assessment Patient appears moderately anxious and in early stage of alcohol withdrawal but he does not have history of DT and no seizure history. He does not appear paranoid and does not have any psychotic symptoms and he is strongly denying any suicidal or homicidal ideas. He needs close supportive therapy with [facility] and I will start Ativan 2 mg 3 times daily p.o. and continue with supportive therapy Initial Treatment Plan 1. Patient was admitted on a 9.39 status. 2. Complete history was obtained. 3. With patients permission, family will be contacted and database will be expanded. 4. Patients medication regimen will be reviewed and changed accordingly. 5. Patient will be provided with protected environment. 6. Patient will be treated with individual, group, and milieu therapies. 7. Patient will receive supportive psych-education. 8. Discharge planning will commence immediately. 9. Outpatient follow-up treatment will be strongly recommended. 10. The initial treatment plan will focus initially on: * Depression. * Risk for suicide. ESTIMATED LENGTH OF STAY: 3-5 DAYS. TIME SPENT COUNSELING AND COORDINATING INITIAL CARE: Minutes. Tobacco Cessation Screen If Patient is a Smoker Occasional smoker but does not feel he needs nicotine replacement therapy N/A-No Antipsychotics Vital Signs Vital Signs Date Time Temp Pulse Resp B/P (MAP) Pulse Ox O2 Delivery O2 Flow Rate FiO2 09/21/20 08:28 Room Air 09/21/20 08:00 93 123/100 09/21/20 06:18 98.2 20 100 Laboratory Data 24H Labs Laboratory Tests 2 09/20/20 12:57: Coronavirus (COVID-19)(PCR) NEGATIVE, Influenza Type A (RT-PCR) NEGATIVE, Influenza Type B (RT-PCR) NEGATIVE, Respiratory Syncytial Virus (PCR) NEGATIVE Medications Scheduled Bupropion Hcl (Bupropion Xl) 150 Mg Tab.er.24h, 150 MG PO QHS, (Reported) Omeprazole (Omeprazole) 40 Mg Capsule.dr, 40 MG PO QHS, (Reported) Scheduled PRN Alprazolam (Alprazolam) 0.5 Mg Tablet, 0.5 MG PO TID PRN for ANXIETY, (Reported) Allergies Coded Allergies: Unclassified (Verified Allergy, Intermediate, ARTIFICIAL FLAVORING=RASH, 09/20/20) Penicillins (Verified Allergy, Unknown, rash, 05/04/20) SEASONAL ALLERGIES (Verified Allergy, Unknown, 07/07/13) VERONICA BRADEN M.D. Sep 21, 2020 11:10
--- NOTE | 2020-09-21 12:41 | HPEPDOC ---
[facility] Medical History & Physical Date of Admission Sep 20, 2020 Date of Service: Sep 21, 2020 History and Physical CHIEF COMPLAINT: Routine medical exam HISTORY OF PRESENT ILLNESS: 35-year-old male with history of polysubstance abuse with opiates and amphetamines. 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 Another into the prostate followed at the urology services in [place], Traumatic pneumothorax after a fall with admission to the hospital in 1999 1399, thoracic surgeon, Dr. Dustin Gómez with rib fracture in 1 flail segment. At that time, depression, eczema, presents to [facility] with depression, admitted to the inpatient mental health unit without any acute medical complaints today. Patient denies any fever, weight gain, weight loss, changes in appetite, changes in sleep habits, diarrhea, constipation, dysuria, urgency, frequency, flank pain, chills, nausea, vomiting, diarrhea, abdominal pain, hematochezia, hematemesis, coffee-ground emesis, bright blood per rectum, chest pain, pressure, tightness, shortness of breath, rhinorrhea, sore throat, changes in vision, ear discharge, tinnitus no other complaints. Hospitalist was asked to do a routine medical examination. PAST MEDICAL /SURGICAL HISTORY: history of polysubstance abuse with opiates and amphetamines. 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 Another into the prostate followed at the urology services in [place], Traumatic pneumothorax after a fall with admission to the hospital in 1999 1399, thoracic surgeon, Dr. 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 Patient has history of polysubstance abuse with methamphetamine and opiates. Heavy alcohol abuse and one pack-a-day smoker since his teenage years. Full code FAMILY HISTORY: Mother with cancer. Father with coronary artery disease ALLERGIES: Please see below. REVIEW OF SYSTEMS: 10 point review of systems negative aside from positive findings in HPI HOME MEDICATIONS: Please see below. PHYSICAL EXAMINATION: VITAL SIGNS: See below GENERAL APPEARANCE: Disheveled, no distress HEENT: No JVD, thyromegaly. Moist mucous membranes CARDIOVASCULAR: S1, S2, sinus rhythm LUNGS: Clear to auscultation. No adventitious breath sounds. Air entry is equal bilaterally ABDOMEN: Positive bowel sounds, soft, nontender, nondistended EXTREMITIES: No cyanosis, clubbing or pitting edema LABORATORY DATA: See below. MICROBIOLOGY: Please see below. ASSESSMENT: 35-year-old male with history of polysubstance abuse with opiates and amphetamines. 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 Another into the prostate followed at the urology services in [place], Traumatic pneumothorax after a fall with admission to the hospital in 1999 1400, thoracic surgeon, Dr. Dustin Gómez with rib fracture in 1 flail segment. At that time, depression, eczema, presents to [facility] with depression, admitted to the inpatient mental health unit without any acute medical complaints today. Patient denies any fever, weight gain, weight loss, changes in appetite, changes in sleep habits, diarrhea, constipation, dysuria, urgency, frequency, flank pain, chills, nausea, vomiting, diarrhea, abdominal pain, hematochezia, hematemesis, coffee-ground emesis, bright blood per rectum, chest pain, pressure, tightness, shortness of breath, rhinorrhea, sore throat, changes in vision, ear discharge, tinnitus no other complaints. Hospitalist was asked to do a routine medical examination. Depression -managed by primary team psychiatrist polysubstance abuse with opiates and amphetamines-outpatient drug rehabilitation program Situational anxiety disorder-managed by primary team psychiatrist double ureters going into the bladder. Another into the prostate . Outpatient follow-up with [facility] urology History of tension pneumothorax with 1 flail segment, resolved. Hospitals. We'll sign off. Please call [place] office at [phone] for any new acute medical issues Vital Signs Vital Signs Date Time Temp Pulse Resp B/P (MAP) Pulse Ox O2 Delivery O2 Flow Rate FiO2 09/21/20 08:28 Room Air 09/21/20 08:00 93 123/100 09/21/20 06:18 98.2 20 100 Laboratory Data Labs 24H Laboratory Tests 2 09/20/20 12:57: Coronavirus (COVID-19)(PCR) NEGATIVE, Influenza Type A (RT-PCR) NEGATIVE, Influenza Type B (RT-PCR) NEGATIVE, Respiratory Syncytial Virus (PCR) NEGATIVE 09/21/20 11:40: Home Medications Scheduled Bupropion Hcl (Bupropion Xl) 150 Mg Tab.er.24h, 150 MG PO QHS Omeprazole (Omeprazole) 40 Mg Capsule.dr, 40 MG PO QHS Scheduled PRN Alprazolam (Alprazolam) 0.5 Mg Tablet, 0.5 MG PO TID PRN for ANXIETY Allergies Coded Allergies: Unclassified (Verified Allergy, Intermediate, ARTIFICIAL FLAVORING=RASH, 09/20/20) Penicillins (Verified Allergy, Unknown, rash, 05/04/20) SEASONAL ALLERGIES (Verified Allergy, Unknown, 07/07/13) A-FIB/CHADSVASC A-FIB History Current/History of A-Fib/PAF?: No Current PO Anticoag Therapy: No Age/Risk Factor Scoring CHADSVASC: CHADSVASC Response (Comments) Value Age Risk Factor Age < 65 years old 0 Gender Risk Factor Male 0 Hx of CHF No 0 Hx of HTN No 0 Hx of Stroke/TIA/or VTE No 0 Hx of Diabetes No 0 Hx of Vascular Disease No 0 Total 0 Treatment Treatment ordered: NONE RANDY BULL MD Sep 21, 2020 12:41
[2020-09-21] MEDS: LORazepam 2 MG TAB PO SCH ×2 (15:01→20:23)
[2020-09-21 17:02] VITALS: BP 144/86
[2020-09-21] MEDS: buPROPion **XL** TABLET 150MG (WELLBUTRIN XL) PO SCH (20:23)
[2020-09-21] MEDS: traZODone 50 MG TAB PO PRN (20:23)
[2020-09-21] MEDS: OMEPRAZOLE 20 MG CAP PO SCH (20:23)
[2020-09-21 22:00] VITALS: BP 146/88
[2020-09-22] MEDS ORDERED: NICO21PAT TD (07:42)
[2020-09-22 07:51] VITALS: BP 142/91
--- NOTE | 2020-09-22 08:39 | MHDSPDOC ---
[facility] Discharge Summary Discharge Summary DATE OF ADMISSION: Sep 20, 2020 at 14:24 DATE OF DISCHARGE: September 22, 2020 DISCHARGE DIAGNOSES: 1.. Depressive disorder NOS 2.. Alcohol dependence REASON FOR ADMISSION: 35-year-old man with a history of polysubstance abuse and recent treatment for depression. He was brought in on mental health warrant after he reportedly made threatening statement to his father and also vague suicidal threats. Patient stated that he has been in full sobriety from his drug use but has been drinking heavily in the past several weeks. He admits that he was feeling irritable and frustrated and made some threatening remarks while he was acutely intoxicated but denies any ongoing paranoia and denies any intent to harm anybody and is not showing any gross manic or psychotic symptoms. CONSULTANTS INVOLVED: TREATMENT AND PROGRESS ON THE UNIT : Patient was seen for supportive therapy he was put on alcohol withdrawal protocol and he was given Ativan 2 mg 3 times a day. He showed rapid improvement and his vital signs are stable and he slept fairly good and denies any hallucination paranoia and denies any thoughts of harming anybody. His admission blood works are all within normal limit and he has no physical complaints and he is going to continue follow-up with his primary care doctor but is also willing to accept outpatient mental health treatment.. HOSPITAL COURSE: Patient did not experience any serious withdrawal symptoms and appears to be stable at this time. Patient reports that his girlfriend needs to go to work and there were 3 young children that he needs to watch and he is very anxious to go home to take care of this situation. He is pleasant cooperative and is in no acute distress and denies any lethality issues. It has been over 72 hours since his last drink and patient is willing to abstain from alcohol and willing to continue outpatient treatment. DISCHARGE ASSESSMENT: The patient is stable and in no acute distress. He is not psychotic and is not showing any acute withdrawal symptoms and is willing to continue outpatient treatment and does not meet criteria for involuntary retention and we will discharge him with a follow-up appointment. MENTAL STATUS EXAMINATION ON DISCHARGE: Patient is a 35-year old male, who is cooperative. Speech is rational coherent. Language skills are good. Thought processes including: Productive and spontaneous. Thought content: No paranoia and no thoughts of harming anybody. Abstract reasoning, and computation: Fair. Description of associations: Organized. Description of abnormal or psychotic thoughts: None. Judgment: Fair. Insight: Good]. Orientation to well oriented. Recent and remote memory: Unimpaired. Attention span and concentration:. Language:. Fund of knowledge:. Mood: Mildly anxious but appropriate no serious depression. Affect: Appropriate. MEDICATIONS ON DISCHARGE: -For. No prescription was given -For. -For. PLAN/FOLLOWUP ARRANGEMENTS: Arranged by financial planner. The amount of time spent in the coordination of care for this patient was approximately 35 minutes. ETOH/Disorder Med Rx ETOH/DRUG DISORDER RX: N/A Vital Signs/I&Os Vital Signs Date Time Temp Pulse Resp B/P (MAP) Pulse Ox O2 Delivery O2 Flow Rate FiO2 09/22/20 07:51 98.8 76 20 142/91 (108) 99 09/21/20 08:28 Room Air Laboratory Data Labs 24H Laboratory Tests 2 09/21/20 11:40: Methicillin-Resist S.aureus DNA PCR NOT DETECTED Medications Scheduled Bupropion Hcl (Bupropion Xl) 150 Mg Tab.er.24h, 150 MG PO QHS, (Reported) Nicotine (Nicotine Patch) 21 Mg Patch.td24, 1 PATCH TD DAILY for smoke cessation for 7 Days, #7 Omeprazole (Omeprazole) 40 Mg Capsule.dr, 40 MG PO QHS, (Reported) Scheduled PRN Alprazolam (Alprazolam) 0.5 Mg Tablet, 0.5 MG PO TID PRN for ANXIETY, (Reported) Allergies Coded Allergies: Unclassified (Verified Allergy, Intermediate, ARTIFICIAL FLAVORING=RASH, 09/20/20) Penicillins (Verified Allergy, Unknown, rash, 05/04/20) SEASONAL ALLERGIES (Verified Allergy, Unknown, 07/07/13) VERONICA BRADEN M.D. Sep 22, 2020 08:38
[2020-09-22] MEDS: LORazepam 2 MG TAB PO SCH (08:57)
[2020-09-22] MEDS: THIAMINE 100 MG TAB PO SCH (08:58)
[2020-09-22] MEDS: MULTIVITAMINS/MINERALS THERAP 1 TAB PO SCH (08:58)
[2020-09-22] MEDS: NICOTINE 21MG/24HR 1 EA TRANSDERMAL TD SCH (08:58)
[2020-09-22] MEDS: FOLIC ACID 1 MG TAB PO SCH (08:58)
== END 2020-09-22 10:25 | disposition home or self-care (01) | DRG 753 ==
LOC: M ED 17:18 → M ED INP 09-20 14:24 → M PSY 09-20 15:55
PROVIDERS: ADMIT Psychiatry & Neurology Psychiatry; ATTEND Psychiatry & Neurology Psychiatry
DX: F32.89 Other specified depressive episodes (principal); F10.10 Alcohol abuse, uncomplicated; F19.11 Other psychoactive substance abuse, in remission; F17.210 Nicotine dependence, cigarettes, uncomplicated; Z20.822 Contact with and (suspected) exposure to COVID-19; Z79.899 Other long term (current) drug therapy; Z88.0 Allergy status to penicillin; Z91.02 Food additives allergy status; Q62.5 Duplication of ureter

== ENCOUNTER 2022-03-29 14:15 | Inpatient (IN) | payer OTHER, MEDICARE ==
[~2022-03-29] VITALS: Ht 180.3 cm; Wt 85.5 kg
[~2022-03-29 14:15] MED LIST changes: +ALPR0.5T3 PO; +BUPR150T12 PO; +NICO21PAT TD; +OMEP40CA5 PO
[2022-03-29 15:02] LABS: BASO % 0.3 % (0.0-1.0); EOS % 0.3 % (0.0-3.0); HEMATOCRIT 27.6 % (42.0-52.0); HEMOGLOBIN 9.8 g/dl (13.5-17.5); LYMPH # 0.9 10^3/uL (1.5-5.0); LYMPH % 7.9 % (24.0-44.0); MEAN CORPUSCULAR HEMOGLOBIN 36.2 pg (27.0-33.0); MEAN CORPUSCULAR HGB CONC 35.5 g/dl (32.0-36.5); MEAN CORPUSCULAR VOLUME 101.8 fl (80.0-96.0); MONO # 0.8 10^3/uL (0.0-0.8); MONO % 6.7 % (2.0-8.0); NEUTROPHILS # 9.8 10^3/uL (1.5-8.5); NEUTROPHILS % 83.9 % (36.0-66.0); PLATELET COUNT, AUTOMATED 277 10^3/uL (150-450); RED BLOOD COUNT 2.71 10^6/uL (4.30-6.10); WHITE BLOOD COUNT 11.7 10^3/uL (4.0-10.0)
[2022-03-29 15:24] LABS: LIPASE 55 U/L (12-53)
[2022-03-29 15:25] LABS: BILIRUBIN,DIRECT 0.8 MG/DL (<0.4)
[2022-03-29 15:26] LABS: ALBUMIN 2.6 G/DL (3.2-5.2); ALKALINE PHOSPHATASE 152 U/L (46-116); ALT/SGPT 29 U/L (7.0-40); AST/SGOT 52 U/L (<34); BILIRUBIN,TOTAL 1.9 MG/DL (0.3-1.2); BLOOD UREA NITROGEN 9 MG/DL (9-23); CALCIUM LEVEL 8.6 MG/DL (8.5-10.1); CARBON DIOXIDE LEVEL 26 MMOL/L (20-31); CHLORIDE LEVEL 83 MMOL/L (98-107); CREATININE FOR GFR 1.04 MG/DL (0.70-1.30); GLOMERULAR FILTRATION RATE > 60.0 (>60); GLUCOSE, FASTING 124 MG/DL (60-100); POTASSIUM SERUM 3.9 MMOL/L (3.5-5.1); SODIUM LEVEL 122 MMOL/L (136-145); TOTAL PROTEIN 6.1 G/DL (5.7-8.2)
[2022-03-29] MEDS ORDERED: ONDANSETRON 4MG 2ML VIAL IV ONE (16:30)
[2022-03-29] MEDS ORDERED: NS 1,000 ML IV ONE ×3 (16:30→20:45)
[2022-03-29] MEDS ORDERED: BENZONATATE 100MG CAPSULE PO ONE (16:30)
[2022-03-29 17:10] LABS: RSV AMPLIFICATION NEGATIVE (NEGATIVE)
[2022-03-29 17:24] LABS: CK-MB VALUE MASS < 1.0 NG/ML (<3.6)
[2022-03-29 17:25] LABS: CPK CREATINE PHOSPHOKINASE 46 U/L (46-171); MB/CK RELATIVE INDEX 2.17 (< OR =4)
[2022-03-29] MEDS ORDERED: NS 500 ML IV ONE (17:45)
[2022-03-29] MEDS ORDERED: ACETAMINOPHEN 500 MG TAB PO ONE (18:15)
[2022-03-29] MEDS ORDERED: ISOVUE-370 76% 100ML VIAL As Ordered ONE (18:22)
[2022-03-29] MEDS ORDERED: guaiFENesin ER 600 MG TAB PO STA (19:05)
[2022-03-29] MEDS ORDERED: cefTRIAXone SOD 1 GM in D5W MINI-BAG PLUS 50 ML IV ONE (19:20)
[2022-03-29] MEDS ORDERED: NOREPINEPHRINE 4MG IN D5 250ML 4 MG in IV 1 EA IV SCH ×4 (20:05→22:25)
[2022-03-29 20:16] LABS: VENOUS BASE EXCESS 1.7 (-2.0-2.0); VENOUS HCO3 24.8 MEQ/L (23.0-27.0); VENOUS O2 SATURATION 96.3 % (60.0-80.0); VENOUS PARTIAL PRESSURE CO2 33.1 mmHg (38.0-50.0); VENOUS PARTIAL PRESSURE O2 88.8 mmHg (30.0-50.0); VENOUS PH 7.492 UNITS (7.330-7.430); VENOUS STANDARD HCO3 25.9 MEQ/L; VENOUS TOTAL CO2 25.8 MEQ/L (24.0-28.0)
[2022-03-29 20:26] LABS: ETHYL ALCOHOL (ETHANOL) 0.004 % (0.000-0.010)
[2022-03-29 20:28] LABS: INR 1.13; PARTIAL THROMBOPLASTIN TIME 30.1 SECONDS (24.8-34.2); PROTHROMBIN TIME 14.7 SECONDS (12.5-14.5)
[2022-03-29] MEDS ORDERED: guaiFENesin ER 600 MG TAB PO SCH (21:00)
[2022-03-29] MEDS: THIAMINE 100 MG TAB PO SCH (21:00)
[2022-03-29 21:55] LABS: AMPHETAMINES LEVEL URINE NEGATIVE (NEGATIVE); BARBITURATES URINE NEGATIVE (NEGATIVE); BENZODIAZEPINES URINE NEGATIVE (NEGATIVE); COCAINE METABOLITE URINE NEGATIVE (NEGATIVE); METHADONE URINE NEGATIVE (NEGATIVE); OPIATES URINE NEGATIVE (NEGATIVE); PHENCYCLIDINE URINE NEGATIVE (NEGATIVE)
[2022-03-29] MEDS ORDERED: LR 1,000 ML IV SCH (22:25)
[2022-03-29] MEDS ORDERED: LR 1,000 ML IV ONE (22:30)
[2022-03-29] MEDS ORDERED: ACET-897 PO (22:38)
[2022-03-29] MEDS ORDERED: HOME MED LIST COMPLETE! XX SCH (22:40)
[2022-03-29] MEDS ORDERED: LORazepam 2 MG TAB PO PRN (23:05)
[2022-03-29] MEDS: DOXYCYCLINE HYCLATE 100 MG in D5W MINI-BAG PLUS 100 ML IV SCH (23:06)
[2022-03-29 23:12] LABS: CANNABINOIDS URINE POSITIVE (NEGATIVE)
[2022-03-30] VITALS (14 sets, daily range): BP systolic 97–132; BP diastolic 50–86
[2022-03-30] MEDS: RAMELTEON 8 MG TAB (ROZEREM) PO PRN ×2 (00:19→21:17)
[2022-03-30] MEDS: VANCOMYCIN HCL 1,000 MG, VIAL MATE ADAPTER 1 EACH in NS 250 ML IV SCH ×2 (00:54→08:15)
[2022-03-30] MEDS ORDERED: VANCOMYCIN HCL 1,000 MG, VIAL MATE ADAPTER 1 EACH in NS 250 ML IV ONE (01:00)
[2022-03-30] MEDS: PIPERACILLIN/TAZOBACTAM SOD 4.5 GM in D5W MINI-BAG PLUS 50 ML IV SCH ×4 (03:01→20:40)
[2022-03-30 07:00] LABS: HEMATOCRIT 22.9 % (42.0-52.0); HEMOGLOBIN 8.1 g/dl (13.5-17.5); MEAN CORPUSCULAR HEMOGLOBIN 36.5 pg (27.0-33.0); MEAN CORPUSCULAR HGB CONC 35.4 g/dl (32.0-36.5); MEAN CORPUSCULAR VOLUME 103.2 fl (80.0-96.0); PLATELET COUNT, AUTOMATED 210 10^3/uL (150-450); RED BLOOD COUNT 2.22 10^6/uL (4.30-6.10); WHITE BLOOD COUNT 6.8 10^3/uL (4.0-10.0)
[2022-03-30 07:23] LABS: MAGNESIUM LEVEL 1.5 MG/DL (1.8-2.4)
[2022-03-30 07:26] LABS: VITAMIN B12 LEVEL 556 PG/ML (211-911)
[2022-03-30 07:29] LABS: ALBUMIN 2.1 G/DL (3.2-5.2); ALKALINE PHOSPHATASE 135 U/L (46-116); ALT/SGPT 39 U/L (7.0-40); AST/SGOT 137 U/L (<34); BILIRUBIN,TOTAL 1.4 MG/DL (0.3-1.2); BLOOD UREA NITROGEN 10 MG/DL (9-23); CARBON DIOXIDE LEVEL 24 MMOL/L (20-31); CHLORIDE LEVEL 92 MMOL/L (98-107); CREATININE FOR GFR 1.19 MG/DL (0.70-1.30); FOLATE 3.04 NG/ML (>5.4); GLOMERULAR FILTRATION RATE > 60.0 (>60); GLUCOSE, FASTING 101 MG/DL (60-100); POTASSIUM SERUM 3.6 MMOL/L (3.5-5.1); SODIUM LEVEL 126 MMOL/L (136-145); TOTAL PROTEIN 4.8 G/DL (5.7-8.2)
[2022-03-30] MEDS: FOLIC ACID 1MG TAB PO SCH (08:15)
[2022-03-30] MEDS: MULTIVITAMINS/MINERALS THERAP 1 TAB PO SCH (08:15)
[2022-03-30] MEDS: THIAMINE 100 MG TAB PO SCH ×2 (08:15→20:39)
[2022-03-30] MEDS: PANTOPRAZOLE 40MG VIAL IV SCH (08:15)
[2022-03-30] MEDS: NS 1,000 ML IV SCH ×2 (08:16→20:40)
[2022-03-30] MEDS ORDERED: MAG SULF 1GM/100ML (MAG RUN) 1 GM in IV 1 EA IV ONE (10:00)
[2022-03-30] MEDS: DOXYCYCLINE HYCLATE 100 MG in D5W MINI-BAG PLUS 100 ML IV SCH (10:57)
[2022-03-30 15:44] LABS: BLOOD UREA NITROGEN 9 MG/DL (9-23); CARBON DIOXIDE LEVEL 24 MMOL/L (20-31); CHLORIDE LEVEL 92 MMOL/L (98-107); CREATININE FOR GFR 1.17 MG/DL (0.70-1.30); GLOMERULAR FILTRATION RATE > 60.0 (>60); GLUCOSE, FASTING 115 MG/DL (60-100); POTASSIUM SERUM 3.1 MMOL/L (3.5-5.1); SODIUM LEVEL 126 MMOL/L (136-145)
[2022-03-30] MEDS: KCL 10MEQ/100ML SWI (KRUN) 10 MEQ in IV 1 EA IV SCH ×4 (19:50→23:05)
[2022-03-30] MEDS ORDERED: POTASSIUM CHLORIDE 10MEQ SR TABLET PO ONE (20:00)
[2022-03-30] MEDS: DOXYCYCLINE HYCLATE 100MG TABLET PO SCH (20:39)
[2022-03-30] MEDS: VANCOMYCIN HCL 750 MG, VIAL MATE ADAPTER 1 EACH in D5W 250 ML IV SCH (23:05)
[2022-03-31] VITALS: BP 114/64
[2022-03-31] MEDS: PIPERACILLIN/TAZOBACTAM SOD 4.5 GM in D5W MINI-BAG PLUS 50 ML IV SCH ×4 (02:54→21:10)
[2022-03-31] MEDS: ACETAMINOPHEN TAB 650MG DOSE (2X325MG) PO PRN ×3 (02:54→21:10)
[2022-03-31 04:00] VITALS: BP 121/67
[2022-03-31] MEDS ORDERED: PROMETHAZINE 25MG/ML 1ML VIAL IV ONE (04:00)
[2022-03-31 06:08] LABS: HEMATOCRIT 23.6 % (42.0-52.0); HEMOGLOBIN 8.2 g/dl (13.5-17.5); MEAN CORPUSCULAR HEMOGLOBIN 36.6 pg (27.0-33.0); MEAN CORPUSCULAR HGB CONC 34.7 g/dl (32.0-36.5); MEAN CORPUSCULAR VOLUME 105.4 fl (80.0-96.0); PLATELET COUNT, AUTOMATED 204 10^3/uL (150-450); RED BLOOD COUNT 2.24 10^6/uL (4.30-6.10)
[2022-03-31 06:38] LABS: MAGNESIUM LEVEL 1.7 MG/DL (1.8-2.4)
[2022-03-31 06:40] LABS: ALBUMIN 2.1 G/DL (3.2-5.2); ALKALINE PHOSPHATASE 129 U/L (46-116); ALT/SGPT 40 U/L (7.0-40); AST/SGOT 132 U/L (<34); BILIRUBIN,TOTAL 1.1 MG/DL (0.3-1.2); BLOOD UREA NITROGEN 7 MG/DL (9-23); CALCIUM LEVEL 7.2 MG/DL (8.5-10.1); CARBON DIOXIDE LEVEL 25 MMOL/L (20-31); CHLORIDE LEVEL 98 MMOL/L (98-107); CREATININE FOR GFR 1.08 MG/DL (0.70-1.30); GLOMERULAR FILTRATION RATE > 60.0 (>60); GLUCOSE, FASTING 85 MG/DL (60-100); POTASSIUM SERUM 3.5 MMOL/L (3.5-5.1); SODIUM LEVEL 133 MMOL/L (136-145); TOTAL PROTEIN 4.8 G/DL (5.7-8.2)
[2022-03-31] MEDS ORDERED: MAG SULF 1GM/100ML (MAG RUN) 1 GM in IV 1 EA IV ONE (07:00)
[2022-03-31] MEDS: NS 1,000 ML IV SCH ×3 (07:57→17:36)
[2022-03-31 08:03] VITALS: BP 132/95
[2022-03-31] MEDS: MULTIVITAMINS/MINERALS THERAP 1 TAB PO SCH (09:13)
[2022-03-31] MEDS: MAGNESIUM OXIDE 400MG TAB (MAG-OX) PO SCH ×2 (09:13→21:10)
[2022-03-31] MEDS: DOXYCYCLINE HYCLATE 100MG TABLET PO SCH ×2 (09:13→21:10)
[2022-03-31] MEDS: FOLIC ACID 1MG TAB PO SCH (09:13)
[2022-03-31] MEDS: THIAMINE 100 MG TAB PO SCH ×2 (09:13→21:10)
[2022-03-31] MEDS: PANTOPRAZOLE 40MG VIAL IV SCH (09:14)
[2022-03-31] MEDS: VANCOMYCIN HCL 750 MG, VIAL MATE ADAPTER 1 EACH in D5W 250 ML IV SCH (11:00)
[2022-03-31 16:00] VITALS: BP 124/67
[2022-03-31] MEDS: traZODone 25MG PER 1/2 TABLET PO SCH (21:10)
[2022-03-31 21:15] VITALS: BP 134/90
[2022-03-31] MEDS ORDERED: ONDANSETRON 4MG TAB PO PRN (21:55)
[2022-04-01] MEDS: PIPERACILLIN/TAZOBACTAM SOD 4.5 GM in D5W MINI-BAG PLUS 50 ML IV SCH ×4 (02:12→21:35)
[2022-04-01] MEDS: NS 1,000 ML IV SCH (02:12)
[2022-04-01 06:54] VITALS: BP 138/88
[2022-04-01 06:56] LABS: HEMATOCRIT 24.8 % (42.0-52.0); HEMOGLOBIN 8.4 g/dl (13.5-17.5); MEAN CORPUSCULAR HEMOGLOBIN 36.5 pg (27.0-33.0); MEAN CORPUSCULAR HGB CONC 33.9 g/dl (32.0-36.5); MEAN CORPUSCULAR VOLUME 107.8 fl (80.0-96.0); PLATELET COUNT, AUTOMATED 205 10^3/uL (150-450); WHITE BLOOD COUNT 8.5 10^3/uL (4.0-10.0)
[2022-04-01] MEDS ORDERED: ALBUTEROL SULFATE 2.5MG/0.5ML INH NEB SOLN NEB PRN (07:25)
[2022-04-01 07:28] LABS: ALBUMIN 2.1 G/DL (3.2-5.2); ALKALINE PHOSPHATASE 129 U/L (46-116); ALT/SGPT 37 U/L (7.0-40); AST/SGOT 85 U/L (<34); BILIRUBIN,TOTAL 0.8 MG/DL (0.3-1.2); BLOOD UREA NITROGEN 6 MG/DL (9-23); CALCIUM LEVEL 7.4 MG/DL (8.5-10.1); CARBON DIOXIDE LEVEL 24 MMOL/L (20-31); CHLORIDE LEVEL 103 MMOL/L (98-107); CREATININE FOR GFR 0.84 MG/DL (0.70-1.30); GLOMERULAR FILTRATION RATE > 60.0 (>60); GLUCOSE, FASTING 78 MG/DL (60-100); POTASSIUM SERUM 3.3 MMOL/L (3.5-5.1); SODIUM LEVEL 136 MMOL/L (136-145); TOTAL PROTEIN 4.8 G/DL (5.7-8.2)
[2022-04-01] MEDS: IPRATROPIUM 0.5MG/ALBUTEROL 2.5MG INH SOL UD 3ML (DUONEB) NEB SCH ×4 (08:00→20:00)
[2022-04-01] MEDS: MAGNESIUM OXIDE 400MG TAB (MAG-OX) PO SCH ×2 (08:46→21:58)
[2022-04-01] MEDS: FOLIC ACID 1MG TAB PO SCH (08:46)
[2022-04-01] MEDS: DOXYCYCLINE HYCLATE 100MG TABLET PO SCH (08:46)
[2022-04-01] MEDS: THIAMINE 100 MG TAB PO SCH (08:46)
[2022-04-01] MEDS: MULTIVITAMINS/MINERALS THERAP 1 TAB PO SCH (08:46)
[2022-04-01] MEDS: PANTOPRAZOLE 40MG VIAL IV SCH (08:47)
[2022-04-01] MEDS: guaiFENesin ER 600 MG TAB PO SCH ×2 (08:47→21:58)
[2022-04-01] MEDS: ACETAMINOPHEN TAB 650MG DOSE (2X325MG) PO PRN (08:51)
[2022-04-01 14:00] VITALS: BP 114/72
[2022-04-01] MEDS ORDERED: POTASSIUM CHLORIDE 10MEQ SR TABLET PO ONE (15:40)
[2022-04-01] MEDS ORDERED: methylPREDNISolone 125MG 2ML VIAL IV ONE (16:00)
[2022-04-01 19:47] VITALS: BP 144/95
[2022-04-01] MEDS: traZODone 25MG PER 1/2 TABLET PO SCH (21:57)
[2022-04-02] MEDS: PIPERACILLIN/TAZOBACTAM SOD 4.5 GM in D5W MINI-BAG PLUS 50 ML IV SCH ×4 (03:01→21:14)
[2022-04-02 05:15] VITALS: BP 138/91
[2022-04-02 06:35] LABS: HEMATOCRIT 25.1 % (42.0-52.0); HEMOGLOBIN 8.4 g/dl (13.5-17.5); MEAN CORPUSCULAR HEMOGLOBIN 37.2 pg (27.0-33.0); MEAN CORPUSCULAR HGB CONC 33.5 g/dl (32.0-36.5); MEAN CORPUSCULAR VOLUME 111.1 fl (80.0-96.0); PLATELET COUNT, AUTOMATED 182 10^3/uL (150-450); RED BLOOD COUNT 2.26 10^6/uL (4.30-6.10); WHITE BLOOD COUNT 9.5 10^3/uL (4.0-10.0)
[2022-04-02] MEDS: IPRATROPIUM 0.5MG/ALBUTEROL 2.5MG INH SOL UD 3ML (DUONEB) NEB SCH ×4 (07:50→20:46)
[2022-04-02 07:57] LABS: ALKALINE PHOSPHATASE 122 U/L (46-116); ALT/SGPT 30 U/L (7.0-40); AST/SGOT 47 U/L (<34); BILIRUBIN,TOTAL 0.6 MG/DL (0.3-1.2); BLOOD UREA NITROGEN 6 MG/DL (9-23); CALCIUM LEVEL 7.7 MG/DL (8.5-10.1); CARBON DIOXIDE LEVEL 23 MMOL/L (20-31); CHLORIDE LEVEL 103 MMOL/L (98-107); CREATININE FOR GFR 0.72 MG/DL (0.70-1.30); GLOMERULAR FILTRATION RATE > 60.0 (>60); GLUCOSE, FASTING 104 MG/DL (60-100); POTASSIUM SERUM 3.8 MMOL/L (3.5-5.1); SODIUM LEVEL 136 MMOL/L (136-145); TOTAL PROTEIN 4.9 G/DL (5.7-8.2)
[2022-04-02] MEDS: PANTOPRAZOLE 40MG VIAL IV SCH (09:59)
[2022-04-02] MEDS: MULTIVITAMINS/MINERALS THERAP 1 TAB PO SCH (09:59)
[2022-04-02] MEDS: guaiFENesin ER 600 MG TAB PO SCH ×2 (09:59→21:16)
[2022-04-02] MEDS: FOLIC ACID 1MG TAB PO SCH (09:59)
[2022-04-02] MEDS: methylPREDNISolone 125MG 2ML VIAL IV SCH ×2 (09:59→21:15)
[2022-04-02] MEDS: MAGNESIUM OXIDE 400MG TAB (MAG-OX) PO SCH ×2 (10:00→21:15)
[2022-04-02] MEDS ORDERED: FUROSEMIDE 40MG/4ML VIAL IV ONE (13:40)
[2022-04-02 14:00] VITALS: BP 133/86
[2022-04-02] MEDS ORDERED: DOXYCYCLINE HYCLATE 100MG TABLET PO ONE (16:45)
[2022-04-02] MEDS: RIVAROXABAN 10MG TAB (XARELTO) PO SCH (17:11)
[2022-04-02 20:23] VITALS: BP 138/61
[2022-04-02 20:48] VITALS: O2SAT 96
[2022-04-02] MEDS ORDERED: DOXYCYCLINE HYCLATE 100MG TABLET PO SCH (21:00)
[2022-04-02] MEDS: traZODone 25MG PER 1/2 TABLET PO SCH (21:16)
[2022-04-02] MEDS: ACETAMINOPHEN TAB 650MG DOSE (2X325MG) PO PRN (21:17)
[2022-04-03] MEDS: PIPERACILLIN/TAZOBACTAM SOD 4.5 GM in D5W MINI-BAG PLUS 50 ML IV SCH (03:07)
[2022-04-03 05:11] VITALS: BP 126/75
[2022-04-03 06:47] LABS: BASO % 0.1 % (0.0-1.0); HEMATOCRIT 25.3 % (42.0-52.0); HEMOGLOBIN 8.7 g/dl (13.5-17.5); LYMPH # 1.2 10^3/uL (1.5-5.0); LYMPH % 9.4 % (24.0-44.0); MEAN CORPUSCULAR HEMOGLOBIN 37.2 pg (27.0-33.0); MEAN CORPUSCULAR HGB CONC 34.4 g/dl (32.0-36.5); MEAN CORPUSCULAR VOLUME 108.1 fl (80.0-96.0); MONO # 0.7 10^3/uL (0.0-0.8); NEUTROPHILS # 11.2 10^3/uL (1.5-8.5); NEUTROPHILS % 84.5 % (36.0-66.0); RED BLOOD COUNT 2.34 10^6/uL (4.30-6.10); WHITE BLOOD COUNT 13.2 10^3/uL (4.0-10.0)
[2022-04-03 06:55] LABS: PLATELET COUNT, AUTOMATED 291 10^3/uL (150-450)
[2022-04-03 07:00] LABS: ALBUMIN 2.2 G/DL (3.2-5.2); ALKALINE PHOSPHATASE 114 U/L (46-116); ALT/SGPT 30 U/L (7.0-40); AST/SGOT 44 U/L (<34); BILIRUBIN,TOTAL 0.5 MG/DL (0.3-1.2); BLOOD UREA NITROGEN 7 MG/DL (9-23); CALCIUM LEVEL 8.1 MG/DL (8.5-10.1); CARBON DIOXIDE LEVEL 24 MMOL/L (20-31); CHLORIDE LEVEL 102 MMOL/L (98-107); CREATININE FOR GFR 0.77 MG/DL (0.70-1.30); GLOMERULAR FILTRATION RATE > 60.0 (>60); GLUCOSE, FASTING 120 MG/DL (60-100); POTASSIUM SERUM 3.7 MMOL/L (3.5-5.1); SODIUM LEVEL 137 MMOL/L (136-145); TOTAL PROTEIN 5.2 G/DL (5.7-8.2)
[2022-04-03 07:14] VITALS: O2SAT 94
[2022-04-03] MEDS: IPRATROPIUM 0.5MG/ALBUTEROL 2.5MG INH SOL UD 3ML (DUONEB) NEB SCH ×4 (07:16→19:52)
[2022-04-03] MEDS ORDERED: FUROSEMIDE 40MG/4ML VIAL IV ONE (07:50)
[2022-04-03] MEDS ORDERED: ISOVUE-370 76% 100ML VIAL As Ordered ONE (08:12)
[2022-04-03] MEDS ORDERED: LevoFLOXacin IV 750 MG in IV 1 EA IV SCH (09:00)
[2022-04-03] MEDS: MAGNESIUM OXIDE 400MG TAB (MAG-OX) PO SCH ×2 (09:16→20:56)
[2022-04-03] MEDS: MULTIVITAMINS/MINERALS THERAP 1 TAB PO SCH (09:16)
[2022-04-03] MEDS: guaiFENesin ER 600 MG TAB PO SCH ×2 (09:17→20:56)
[2022-04-03] MEDS: LevoFLOXacin 750 MG TABLET PO SCH (09:17)
[2022-04-03] MEDS: methylPREDNISolone 125MG 2ML VIAL IV SCH ×2 (09:17→20:55)
[2022-04-03] MEDS: FOLIC ACID 1MG TAB PO SCH (09:17)
[2022-04-03 10:00] VITALS: BP 152/76
[2022-04-03 18:00] VITALS: BP 148/77
[2022-04-03] MEDS: RIVAROXABAN 10MG TAB (XARELTO) PO SCH (18:23)
[2022-04-03] MEDS: traZODone 25MG PER 1/2 TABLET PO SCH (20:56)
[2022-04-03] MEDS: ACETAMINOPHEN TAB 650MG DOSE (2X325MG) PO PRN (20:56)
[2022-04-03 21:50] VITALS: BP 121/72
[2022-04-04] MEDS: LevoFLOXacin 750 MG TABLET PO SCH (05:21)
[2022-04-04 05:35] LABS: BASO % 0.1 % (0.0-1.0); HEMATOCRIT 24.1 % (42.0-52.0); HEMOGLOBIN 8.1 g/dl (13.5-17.5); LYMPH # 1.4 10^3/uL (1.5-5.0); LYMPH % 14.8 % (24.0-44.0); MEAN CORPUSCULAR HEMOGLOBIN 36.2 pg (27.0-33.0); MEAN CORPUSCULAR HGB CONC 33.6 g/dl (32.0-36.5); MEAN CORPUSCULAR VOLUME 107.6 fl (80.0-96.0); MONO # 0.9 10^3/uL (0.0-0.8); MONO % 9.3 % (2.0-8.0); NEUTROPHILS # 6.9 10^3/uL (1.5-8.5); NEUTROPHILS % 74.5 % (36.0-66.0); PLATELET COUNT, AUTOMATED 322 10^3/uL (150-450); RED BLOOD COUNT 2.24 10^6/uL (4.30-6.10); WHITE BLOOD COUNT 9.3 10^3/uL (4.0-10.0)
[2022-04-04 06:00] LABS: ALBUMIN 2.1 G/DL (3.2-5.2); ALKALINE PHOSPHATASE 99 U/L (46-116); ALT/SGPT 37 U/L (7.0-40); AST/SGOT 56 U/L (<34); BILIRUBIN,TOTAL 0.3 MG/DL (0.3-1.2); BLOOD UREA NITROGEN 8 MG/DL (9-23); CALCIUM LEVEL 8.3 MG/DL (8.5-10.1); CARBON DIOXIDE LEVEL 26 MMOL/L (20-31); CHLORIDE LEVEL 102 MMOL/L (98-107); CREATININE FOR GFR 0.63 MG/DL (0.70-1.30); GLOMERULAR FILTRATION RATE > 60.0 (>60); GLUCOSE, FASTING 147 MG/DL (60-100); POTASSIUM SERUM 3.6 MMOL/L (3.5-5.1); SODIUM LEVEL 137 MMOL/L (136-145); TOTAL PROTEIN 4.9 G/DL (5.7-8.2)
[2022-04-04 06:48] VITALS: BP 148/86
[2022-04-04] MEDS: IPRATROPIUM 0.5MG/ALBUTEROL 2.5MG INH SOL UD 3ML (DUONEB) NEB SCH (08:00)
[2022-04-04] MEDS ORDERED: predniSONE 20 MG TAB PO SCH (09:00)
[2022-04-04] MEDS: MAGNESIUM OXIDE 400MG TAB (MAG-OX) PO SCH (09:32)
[2022-04-04] MEDS: guaiFENesin ER 600 MG TAB PO SCH (09:32)
[2022-04-04] MEDS: MULTIVITAMINS/MINERALS THERAP 1 TAB PO SCH (09:32)
[2022-04-04] MEDS: FOLIC ACID 1MG TAB PO SCH (09:32)
[2022-04-04] MEDS ORDERED: POTA-151 PO (09:40)
[2022-04-04] MEDS ORDERED: MAGN400T2 PO (09:40)
[2022-04-04] MEDS ORDERED: LEVO1TAB40 PO (09:40)
[2022-04-04] MEDS ORDERED: MUCI600T31 PO (09:40)
[2022-04-04] MEDS ORDERED: VENTAER INH (09:40)
[2022-04-04] MEDS ORDERED: FURO20TA2 PO (09:40)
[2022-04-04] MEDS ORDERED: PRED20TA PO (09:40)
== END 2022-04-04 10:05 | disposition home or self-care (01) | DRG 720 ==
LOC: M ED 14:15 → M ED INP 22:21 → ENRESERV 23:28 → M ICU 23:56 → M MS5PR 03-31 16:58
PROVIDERS: ADMIT Family Medicine; ATTEND Student in an Organized Health Care Education/Training Program
DX: A41.9 Sepsis, unspecified organism (principal); J96.01 Acute respiratory failure with hypoxia; R65.21 Severe sepsis with septic shock; J18.9 Pneumonia, unspecified organism; E87.1 Hypo-osmolality and hyponatremia; D53.9 Nutritional anemia, unspecified; F17.200 Nicotine dependence, unspecified, uncomplicated; Q62.5 Duplication of ureter; R31.9 Hematuria, unspecified; Z88.0 Allergy status to penicillin; Z88.8 Allergy status to other drugs, medicaments and biological substances; Z79.899 Other long term (current) drug therapy; F10.10 Alcohol abuse, uncomplicated; E87.6 Hypokalemia; K52.9 Noninfective gastroenteritis and colitis, unspecified

== ENCOUNTER → 2022-04-12 | Outpatient (REF) | payer OTHER ==
[~2022-04-12] MED LIST changes: +ACET-897 PO; +FURO20TA2 PO; +LEVO1TAB40 PO; +MAGN400T2 PO; +MUCI600T31 PO; +POTA-151 PO; +PRED20TA PO; +VENTAER INH
[2022-04-12 17:19] LABS: PERCENT SATURATION 28.7 % (19.7-50.0)
[2022-04-12 17:20] LABS: IMMUNOGLOBULIN A 426.2 MG/DL (40-350)
[2022-04-12 17:21] LABS: FERRITIN 523.2 NG/ML (10.5-307.3); FOLATE 3.8 NG/ML (>5.4)
[2022-04-15 19:07] LABS: ENDOMYSIAL ABY IgA Negative (Negative); TISSUE TRANSGLUTAMINASE IgA <2 U/mL (0-3)
== END ==
LOC: M LAB REF 16:07
PROVIDERS: ATTEND Internal Medicine
DX: R10.13 Epigastric pain (principal); D64.9 Anemia, unspecified

== ENCOUNTER → 2022-11-20 | Outpatient (CLI) | payer OTHER | LOC: M WHC 14:57 | PROVIDERS: ATTEND Internal Medicine | DX: N50.812 Left testicular pain (principal); N49.2 Inflammatory disorders of scrotum; N64.4 Mastodynia; N62 Hypertrophy of breast; N50.89 Other specified disorders of the male genital organs; N43.3 Hydrocele, unspecified ==

== ENCOUNTER → 2022-11-25 | Outpatient (REF) | payer OTHER | LOC: M LAB REF 16:51 | PROVIDERS: ATTEND Internal Medicine | DX: D40.10 Neoplasm of uncertain behavior of unspecified testis (principal); N50.812 Left testicular pain ==

== ENCOUNTER → 2022-12-19 | Outpatient (CLI) | payer OTHER ==
[~2022-12-19] MED LIST changes: +B-1100TA2 PO; +FOLI1TAB11 PO; +FOLI400T13; +ISOVUE-370 76% 100ML VIAL As Ordered ONE; +MAGN400T2; +SUMA100T2
== END ==
LOC: M RAD 11:33
PROVIDERS: ATTEND Specialist
DX: N50.89 Other specified disorders of the male genital organs (principal); K74.60 Unspecified cirrhosis of liver; K76.0 Fatty (change of) liver, not elsewhere classified; N28.89 Other specified disorders of kidney and ureter
CPT/HCPCS: 71260; 74177; Q9967

== ENCOUNTER 2022-12-23 06:16 | Day surgery (SDC) | payer OTHER ==
[~2022-12-23] VITALS: Ht 177.8 cm; Wt 90.3 kg
[~2022-12-23 06:16] MED LIST changes: -ISOVUE-370 76% 100ML VIAL As Ordered ONE; +ceFAZolin SOD 2 GM in IV 1 EA IV ONE
[2022-12-23] MEDS ORDERED: LR 1,000 ML IV SCH ×2 (06:55→08:35)
[2022-12-23] MEDS ORDERED: ONDANSETRON 4MG 2ML VIAL As Ordered ONE (07:12)
[2022-12-23] MEDS ORDERED: LIDOCAINE 2% 100MG/5ML SDV (FOR ANES.) As Ordered ONE (07:12)
[2022-12-23] MEDS ORDERED: KETOROLAC 60MG 2ML VIAL As Ordered ONE (07:12)
[2022-12-23] MEDS ORDERED: propofoL 200 MG/20 ML VIAL As Ordered ONE ×2 (07:12→07:51)
[2022-12-23] MEDS ORDERED: ACETAMINOPHEN 1000MG 100ML IV BAG As Ordered ONE (07:13)
[2022-12-23] MEDS ORDERED: fentaNYL 100 MCG/2 ML INJECTION As Ordered ONE (07:13)
[2022-12-23] MEDS ORDERED: MIDAZOLAM INJ 2MG/2ML VIAL As Ordered ONE (07:13)
[2022-12-23] MEDS ORDERED: dexmedeTOMIDine (4MCG/ML)200MCG/50ML BTL (PRECEDEX) As Ordered ONE (07:51)
[2022-12-23] MEDS ORDERED: HYDROmorphone HCL 2MG/ML 1ML VIAL As Ordered ONE (07:54)
[2022-12-23] MEDS ORDERED: ONDANSETRON 4MG 2ML VIAL IV PRN (08:35)
[2022-12-23] MEDS ORDERED: fentaNYL 100 MCG/2 ML INJECTION IV PRN (08:35)
[2022-12-23] MEDS ORDERED: HYDR-3713 PO (08:42)
[2022-12-23] MEDS ORDERED: CEPH500C PO (08:42)
[2022-12-23 10:35] VITALS: BP 120/75; TEMP 97.3; O2SAT 97
== END 2022-12-23 10:35 | disposition home or self-care (01) ==
LOC: M SDC 06:16
PROVIDERS: ATTEND Urology
DX: N50.1 Vascular disorders of male genital organs (principal); N50.812 Left testicular pain; N62 Hypertrophy of breast; F41.9 Anxiety disorder, unspecified; F32.A Depression, unspecified; Q63.0 Accessory kidney; F17.218 Nicotine dependence, cigarettes, with other nicotine-induced disorders; F12.10 Cannabis abuse, uncomplicated; Z87.898 Personal history of other specified conditions; E53.9 Vitamin B deficiency, unspecified; Z79.899 Other long term (current) drug therapy; Z88.0 Allergy status to penicillin; J30.2 Other seasonal allergic rhinitis; Z91.018 Allergy to other foods
CPT/HCPCS: 54530; 88309; J0131; J0665; J1100; J1170; J1885; J2250; J2405; J3010

== ENCOUNTER → 2023-05-14 | Outpatient (REF) | payer OTHER ==
[~2023-05-14] MED LIST changes: +CEPH500C PO; +HYDR-3713 PO; -ceFAZolin SOD 2 GM in IV 1 EA IV ONE
== END ==
LOC: M LAB REF 12:15
PROVIDERS: ATTEND Internal Medicine
DX: D40.12 Neoplasm of uncertain behavior of left testis (principal); N50.812 Left testicular pain

== ENCOUNTER → 2023-12-22 | Outpatient (CLI) | payer OTHER | LOC: M RAD 15:51 | PROVIDERS: ATTEND Urology | DX: N13.30 Unspecified hydronephrosis (principal) ==

== ENCOUNTER → 2024-01-12 | Outpatient (CLI) | payer OTHER ==
[2024-01-12 10:07] LABS: HEMATOCRIT 45.6 % (42.0-52.0); MEAN CORPUSCULAR HEMOGLOBIN 31.7 pg (27.0-33.0); MEAN CORPUSCULAR HGB CONC 32.9 g/dl (32.0-36.5); MEAN CORPUSCULAR VOLUME 96.4 fl (80.0-96.0); PLATELET COUNT, AUTOMATED 274 10^3/uL (150-450); RED BLOOD COUNT 4.73 10^6/uL (4.30-6.10); WHITE BLOOD COUNT 6.6 10^3/uL (4.0-10.0)
[2024-01-12 10:37] LABS: ALBUMIN 3.6 G/DL (3.2-5.2); ALKALINE PHOSPHATASE 117 U/L (40-129); ALT/SGPT 105 U/L (7.0-40); AST/SGOT 91 U/L (<34); BILIRUBIN,TOTAL 0.4 MG/DL (0.3-1.2); BLOOD UREA NITROGEN 7 MG/DL (9-23); CALCIUM LEVEL 9.5 MG/DL (8.5-10.1); CARBON DIOXIDE LEVEL 28 MMOL/L (20-31); CHLORIDE LEVEL 108 MMOL/L (98-107); CREATININE FOR GFR 0.88 MG/DL (0.70-1.30); GLOMERULAR FILTRATION RATE > 60.0 (>60); GLUCOSE, FASTING 84 MG/DL (60-100); POTASSIUM SERUM 5.1 MMOL/L (3.5-5.1); SODIUM LEVEL 141 MMOL/L (136-145)
== END ==
LOC: M LAB 08:35
PROVIDERS: ATTEND Urology
DX: Q63.0 Accessory kidney (principal)

== ENCOUNTER → 2024-05-12 | Outpatient (REF) | payer OTHER | LOC: M LAB REF 12:30 | PROVIDERS: ATTEND Internal Medicine | DX: E29.1 Testicular hypofunction (principal) ==

== ENCOUNTER → 2024-11-05 | Outpatient (REF) | payer OTHER | LOC: M SFHCDERM 16:43 | PROVIDERS: ATTEND Nurse Practitioner Family | DX: L73.2 Hidradenitis suppurativa (principal) ==

== ENCOUNTER → 2024-12-09 | Outpatient (CLI) | payer OTHER ==
[~2024-12-09] MED LIST changes: +ISOVUE-370 76% 100 ML VIAL As Ordered ONE
== END ==
LOC: M RAD 13:18
PROVIDERS: ATTEND Urology
DX: Q63.0 Accessory kidney (principal)
CPT/HCPCS: 74177; Q9967